=== PATIENT | female | born 1950 | race Caucasian/White ===

== ENCOUNTER 2016-12-05 03:50 | Inpatient (IN) | payer MEDICARE, OTHER ==
[~2016-12-05] VITALS: Ht 167.6 cm; Wt 77.1 kg
[2016-12-05] VITALS (13 sets, daily range): BP systolic 99–149; BP diastolic 52–67; PULSE 82–116; RESP 12–24; TEMP 97.9–98.2; O2SAT 93–100
[~2016-12-05 03:50] MED LIST: ALBU.5I NEB; ASPI1TAB69 PO; ATOR10TA15 PO; CART240C PO; D-20TAB3 PO; LEVO25TA4 PO; SYMB80AE INH; VENL75CA44 PO; VENTAER INH
[2016-12-05] MEDS ORDERED: DILT1TAB4 PO (04:03)
[2016-12-05] MEDS ORDERED: ASPI81CH CHEW (04:03)
--- NOTE | 2016-12-05 04:14 | PD ---
HPI Chief Complaint: Respiratory Symptoms Time Seen by Provider: 04:00 Travel History International Travel<30 days: No Contact w/Intl Traveler<30days: No Traveled to known affect area: No History of Present Illness HPI Is a 66 year-old woman who presents to the emergency room claiming shortness of breath. She is a history of COPD. She is a home oxygen. She states she's had some chronic cough that is unchanged. She was feeling well until today when she began to develop worsening shortness of breath, and some chest tightness. She states it feels like her COPD. Patient received 125 mg of SoluMedrol, and 3 DuoNeb's with EMS. Blood sugar was also elevated for EMS . History Past Medical History Narrative Medical COPD, home O2 Hypothyroidism Hypertension Anxiety Tetanus Vaccination: < 5 Years Influenza Vaccination: Yes Menopausal: Yes : 6 Para: 4 Social History Alcohol Use: No Tobacco Use: No (HX 2 PPD) Allergies-Medications (Allergen,Severity, Reaction): Coded Allergies: Amlodipine (Verified Allergy, Severe, Anaphylaxis, 12/05/16) severe throat swelling Ipratropium (Verified Allergy, Intermediate, Swelling, 12/05/16) throat swelling Reported Meds & Prescriptions Reported Meds & Active Scripts Active Atorvastatin (Atorvastatin Calcium) 10 Mg Tab 10 Mg PO HS Venlafaxine ER 24 HR (Venlafaxine HCl) 75 Mg Cap 75 Mg PO DAILY Ventolin Hfa 18 GM Inh (Albuterol Sulfate) 90 Mcg/Act Aer 2 Puff INH Q4H PRN Albuterol Neb (Albuterol Sulfate) 2.5 Mg/0.5 Ml Neb 2.5 Mg NEB Q4HR NEB PRN Albuterol Sulfate Inhalation Solution is concentrated & must be diluted. Read complete instructions before using. Symbicort Inh (Budesonide/Formoterol Fumarate) 80-4.5 Mcg/Act Aero 2 Puff INH Q12HR Reported Diltiazem ER 24 HR 240 Mg Ad 240 Mg PO DAILY Aspirin 81 Mg Chew 81 Mg CHEW DAILY D-2000 Maximum Strength (Cholecalciferol) 2,000 Unit Tab 2,000 Units PO DAILY Levothyroxine (Levothyroxine Sodium) 25 Mcg Tab 25 Mcg PO DAILY Review of Systems Except as stated in HPI: all other systems reviewed are Neg Physical Exam Narrative GENERAL: Well-appearing 66 year-old woman, moderate respiratory distress, tripoding, poor air movement. SKIN: Focused skin assessment warm/dry. HEAD: Atraumatic. Normocephalic. NECK: Trachea midline. No JVD. CARDIOVASCULAR: Regular rate and rhythm. No murmur appreciated. RESPIRATORY: Moderate restaurant distress, tripoding. Poor air movement. Faint end expiratory wheezing. GASTROINTESTINAL: Abdomen soft, non-tender, nondistended. Hepatic and splenic margins not palpable. MUSCULOSKELETAL: No obvious deformities. No clubbing. No cyanosis. No edema. NEUROLOGICAL: Awake and alert. No obvious cranial nerve deficits. Motor grossly within normal limits. Normal speech. PSYCHIATRIC: Appropriate mood and affect; insight and judgment normal. Data Data Last Documented VS Vital Signs Date Time Temp Pulse Resp B/P Pulse Ox O2 Delivery O2 Flow Rate FiO2 12/05/16 05:27 105 12 99/52 97 BiPAP 12/05/16 05:20 2.00 12/05/16 04:07 40 12/05/16 03:52 97.9 Orders Complete Blood Count With Diff (12/05/16 04:01) Comprehensive Metabolic Panel (12/05/16 04:01) Magnesium (Mg) (12/05/16 04:01) Troponin I (12/05/16 04:01) Iv Access Insert/Monitor (12/05/16 04:01) Electrocardiogram (12/05/16 04:01) Ecg Monitoring (12/05/16 04:01) Oximetry (12/05/16 04:01) Oxygen Administration (12/05/16 04:01) Chest, Single Ap (12/05/16 04:01) Sodium Chloride 0.9% Flush (Ns Flush) (12/05/16 04:15) Resp Bipap / Cpap Non Invas Vt (12/05/16 04:01) Albuterol Concentrated Neb (Albuterol Co (12/05/16 04:15) Albuterol Neb (Albuterol Neb) (12/05/16 05:30) Labs Laboratory Tests Test 12/05/16 12/05/16 04:01 04:05 Sodium Level 142 MEQ/L Potassium Level 4.1 MEQ/L Chloride Level 104 MEQ/L Carbon Dioxide Level 28.5 MEQ/L Anion Gap 10 MEQ/L Blood Urea Nitrogen 17 MG/DL Creatinine 0.79 MG/DL Estimat Glomerular Filtration 73 ML/MIN Rate Random Glucose 255 MG/DL Calcium Level 8.6 MG/DL Magnesium Level 2.2 MG/DL Total Bilirubin 0.3 MG/DL Aspartate Amino Transf 19 U/L (AST/SGOT) Alanine Aminotransferase 35 U/L (ALT/SGPT) Alkaline Phosphatase 120 U/L Troponin I 0.05 NG/ML Total Protein 7.2 GM/DL Albumin 3.8 GM/DL White Blood Count 14.5 TH/MM3 Red Blood Count 5.02 MIL/MM3 Hemoglobin 14.2 GM/DL Hematocrit 44.1 % Mean Corpuscular Volume 87.9 FL Mean Corpuscular Hemoglobin 28.3 PG Mean Corpuscular Hemoglobin 32.2 % Concent Red Cell Distribution Width 14.7 % Platelet Count 362 TH/MM3 Mean Platelet Volume 7.6 FL Neutrophils (%) (Auto) 58.5 % Lymphocytes (%) (Auto) 30.0 % Monocytes (%) (Auto) 6.9 % Eosinophils (%) (Auto) 3.7 % Basophils (%) (Auto) 0.9 % Neutrophils # (Auto) 8.5 TH/MM3 Lymphocytes # (Auto) 4.4 TH/MM3 Monocytes # (Auto) 1.0 TH/MM3 Eosinophils # (Auto) 0.5 TH/MM3 Basophils # (Auto) 0.1 TH/MM3 CBC Comment DIFF FINAL Differential Comment MDM Medical Decision Making Medical Screen Exam Complete: Yes Emergency Medical Condition: Yes Interpretation(s) My review of EKG: Sinus tachycardia rate of 113, normal axis, normal intervals, no definite evidence of acute ischemia. Differential Diagnosis COPD exacerbation, pneumonia, ACS, weakness, other Narrative Course Medical decision making INITIAL calls: This is a 66 year-old woman presents emergent department with acute onset shortness of breath, appears to be COPD exacerbation. She received 3 DuoNeb's and 125 Solu-Medrol in route. Despite that she still pretty uncomfortable tripoding area tight with poor air movement. The patient is on BiPAP, will monitor here in the ED. FINAL: Patient doing well, removed from BiPAP after about an hour or so. Looks much improved. We'll plan on admission for observation for serial bronchodilators and steroids. Diagnosis Primary Impression: COPD (chronic obstructive pulmonary disease) Qualified Code: J44.1 - Chronic obstructive pulmonary disease with acute exacerbation Dario Mills MD Dec 05, 2016 04:14
[2016-12-05] MEDS ORDERED: SODIUM CHLORIDE 0.9% FLUSH 10 ML FLUSH IVF PRN (04:15)
[2016-12-05] MEDS ORDERED: RESP: ALBUTEROL CONC 2.5 MG/0.5 ML NEB NEB ONE (04:15)
[2016-12-05 04:37] LABS: AUTOMATED NEUTROPHIL # 8.5 TH/MM3 (1.8-7.7); BASOPHIL # 0.1 TH/MM3 (0-0.2); BASOPHIL % 0.9 % (0.0-2.0); EOSINOPHIL # 0.5 TH/MM3 (0-0.4); EOSINOPHIL % 3.7 % (0.0-4.0); HEMATOCRIT 44.1 % (35.0-46.0); HEMO FLAGS DIFF FINAL; LYMPHOCYTE # 4.4 TH/MM3 (1.0-4.8); MEAN CELL VOLUME 87.9 FL (80.0-100.0); MEAN CORPUSCULAR HEMOGLOBIN 28.3 PG (27.0-34.0); MEAN CORPUSCULAR HGB CONC 32.2 % (32.0-36.0); MONO % 6.9 % (0.0-8.0); NEUT % 58.5 % (16.0-70.0); PLATELET COUNT 362 TH/MM3 (150-450); RED BLOOD COUNT 5.02 MIL/MM3 (4.00-5.30); RED CELL DISTRIBUTION WIDTH 14.7 % (11.6-17.2); WHITE BLOOD COUNT 14.5 TH/MM3 (4.0-11.0)
[2016-12-05 04:57] LABS: ANION GAP 10 MEQ/L (5-15); AST (GOT) 19 U/L (15-37); BICARBONATE 28.5 MEQ/L (21.0-32.0); BLOOD UREA NITROGEN 17 MG/DL (7-18); CHLORIDE 104 MEQ/L (98-107); GLOMERULAR FILTRATION RATE 73 ML/MIN (>89); MAGNESIUM 2.2 MG/DL (1.5-2.5); POTASSIUM 4.1 MEQ/L (3.5-5.1); SODIUM (NA) 142 MEQ/L (136-145)
[2016-12-05 05:02] LABS: ALKALINE PHOSPHATASE 120 U/L (45-117); ALT (GPT) 35 U/L (10-53); TOTAL BILIRUBIN ADULT 0.3 MG/DL (0.2-1.0)
--- NOTE | 2016-12-05 05:20 | RADRPT ---
EXAM DATE/TIME: 12/05/2016 04:18 [facility] COMPARISON: CHEST SINGLE AP, March 07, 2015, 9:15. INDICATIONS : Shortness of breath. MEDICAL HISTORY : Chronic obstructive pulmonary disease. SURGICAL HISTORY : None. ENCOUNTER: Initial ACUITY: 1 day PAIN SCORE: 0/10 LOCATION: Bilateral chest FINDINGS: Hyperinflation and attenuated lung markings again seen. Heart size normal. Aortic calcification. No c onsolidation or effusion. Osseous structures are intact. CONCLUSION: No significant change has occurred. William Beckford MD on December 05, 2016 at 5:18 Board Certified Radiologist. This report was verified electronically.
[2016-12-05] MEDS ORDERED: RESP: ALBUTEROL 2.5 MG/3 ML NEB (SCH) NEB ONE (05:30)
[2016-12-05] MEDS ORDERED: SODIUM CHLORIDE 0.9% FLUSH 10 ML FLUSH IV FLUSH PRN (07:15)
[2016-12-05] MEDS ORDERED: RESP: ALBUTEROL 2.5 MG/3 ML NEB (PRN) INH (07:15)
--- NOTE | 2016-12-05 07:23 | HHI.HP ---
HPI Service CP Hospitalists Primary Care Physician Unknown Admission Diagnosis COPD Exacerbation Chief Complaint: sob, wheezing, cough Travel History International Travel<30 Days: No Contact w/Intl Traveler <30 Da: No Traveled to Known Affected Are: No History of Present Illness Is a 66 year-old woman with COPD, HTN who presents to the emergency room claiming shortness of breath. She is a home oxygen at 1.5 L/min. She states she's had some chronic cough that is unchanged except for slight phlegm production last few days. She was feeling well until earlier today when she began to develop worsening shortness of breath, and some chest tightness. She states it feels like her COPD exac that she has had in the past. denies chest pain. Was watching TV around 2:30 when she began to note sob. Performed NEB tx and felt better. Went to restroom and started wheezing and having SOB again. She notified EMS. Patient received 125 mg of SoluMedrol, and 3 DuoNeb's with EMS. Blood sugar was also elevated for EMS . She feels much better currently after nebs, steroid, oxygen. She was initially on BiPAP per ER MD. Her last exacerbation was appx 1.5 yrs ago. Review of Systems Constitutional: DENIES: Diaphoretic episodes, Fatigue, Fever, Weight gain, Weight loss, Chills, Dizziness, Change in appetite, Night Sweats Eyes: DENIES: Blurred vision, Diplopia, Eye inflammation, Eye pain, Vision loss , Photosensitivity, Double Vision Ears, nose, mouth, throat: DENIES: Tinnitus, Hearing loss, Vertigo, Nasal discharge, Oral lesions, Throat pain, Hoarseness, Ear Pain, Running Nose, Epistaxis, Sinus Pain, Toothache, Odynophagia Respiratory: COMPLAINS OF: Cough, Wheezing, Sputum production, Shortness of breath Cardiovascular: DENIES: Chest pain, Palpitations, Syncope, Dyspnea on Exertion , PND, Lower Extremity Edema, Orthopnea, Claudication Gastrointestinal: DENIES: Abdominal pain, Black stools, Bloody stools, BRB per rectum, Constipation, Diarrhea, GERD, Nausea, Reflux, Vomiting, Difficulty Swallowing, Anorexia, See HPI Musculoskeletal: COMPLAINS OF: Back pain Hematologic/lymphatic: DENIES: Bruising, Lymphadenopathy Immunologic/allergic: DENIES: Eczema, Urticaria Neurologic: DENIES: Abnormal gait, Headache, Localized weakness, Paresthesias, Seizures, Speech Problems, Tremor, Poor Balance Psychiatric: COMPLAINS OF: Anxiety Past Family Social History Past Medical History COPD Depression/anxiety HTN Hyperlipidemia hx Skin CA Past Surgical History Skin CA removed from scalp (she thinks SCC) T&A Left ulnar nerve surgery Reported Medications Atorvastatin (Atorvastatin Calcium) 10 Mg Tab 10 Mg PO HS Venlafaxine ER 24 HR (Venlafaxine HCl) 75 Mg Cap 75 Mg PO DAILY Ventolin Hfa 18 GM Inh (Albuterol Sulfate) 90 Mcg/Act Aer 2 Puff INH Q4H PRN Albuterol Neb (Albuterol Sulfate) 2.5 Mg/0.5 Ml Neb 2.5 Mg NEB Q4HR NEB PRN Albuterol Sulfate Inhalation Solution is concentrated & must be diluted. Read complete instructions before using. Symbicort Inh (Budesonide/Formoterol Fumarate) 80-4.5 Mcg/Act Aero 2 Puff INH Q12HR Diltiazem ER 24 HR 240 Mg Ad 240 Mg PO DAILY Aspirin 81 Mg Chew 81 Mg CHEW DAILY D-1999 Maximum Strength (Cholecalciferol) 2,000 Unit Tab 2,000 Units PO DAILY Levothyroxine (Levothyroxine Sodium) 25 Mcg Tab 25 Mcg PO DAILY Allergies: Coded Allergies: Amlodipine (Verified Allergy, Severe, Anaphylaxis, 12/05/16) severe throat swelling Ipratropium (Verified Allergy, Intermediate, Swelling, 12/05/16) throat swelling Family History both parents living Mother has HTN Father has hx Skin CA Social History No tobacco in 4 yrs, smoked 2ppd for 45 yrs prior Rare EtOH Lives alone, , from [facility], moved her in 2007 Previously worked as nurse aide Physical Exam Vital Signs Vital Signs Date Time Temp Pulse Resp B/P Pulse Ox O2 Delivery O2 Flow Rate FiO2 12/05/16 05:27 105 12 99/52 97 BiPAP 12/05/16 05:20 98 Nasal Cannula 2.00 12/05/16 04:07 110 24 100 BiPAP 40 12/05/16 04:06 100 BiPAP 40 12/05/16 04:03 113 12 149/67 100 BiPAP 40 12/05/16 04:00 99 40 12/05/16 03:52 97.9 82 24 Physical Exam GENERAL: This is a well-nourished, well-developed patient, in no apparent distress. slightly obese. SKIN: No rashes, ecchymoses or lesions. Cool and dry. HEAD: Atraumatic. Normocephalic. No temporal or scalp tenderness. EYES: Pupils equal round and reactive. Extraocular motions intact. No scleral icterus. No injection or drainage. ENT: Nose without bleeding, purulent drainage or septal hematoma. Throat without erythema, tonsillar hypertrophy or exudate. Uvula midline. Airway patent. NECK: Trachea midline. No JVD or lymphadenopathy. Supple, nontender, no meningeal signs. CARDIOVASCULAR: Regular rate and rhythm with rate in low 100s without murmurs, gallops, or rubs. RESPIRATORY: decreased BS bilat with expir wheezes, fair air movement, no fine crackles or fremitus GASTROINTESTINAL: Abdomen soft, non-tender, nondistended. No hepato-splenomegaly , or palpable masses. No guarding. MUSCULOSKELETAL: Extremities without clubbing, cyanosis, or edema. No joint tenderness, effusion, or edema noted. No calf tenderness. NEUROLOGICAL: Awake and alert. Cranial nerves II through XII intact. Motor and sensory grossly within normal limits. Five out of 5 muscle strength in all muscle groups. Normal speech. Laboratory Laboratory Tests Test 12/05/16 12/05/16 04:01 04:05 Sodium Level 142 Potassium Level 4.1 Chloride Level 104 Carbon Dioxide Level 28.5 Anion Gap 10 Blood Urea Nitrogen 17 Creatinine 0.79 Estimat Glomerular Filtration 73 Rate Random Glucose 255 Calcium Level 8.6 Magnesium Level 2.2 Total Bilirubin 0.3 Aspartate Amino Transf 19 (AST/SGOT) Alanine Aminotransferase 35 (ALT/SGPT) Alkaline Phosphatase 120 Troponin I 0.05 Total Protein 7.2 Albumin 3.8 White Blood Count 14.5 Red Blood Count 5.02 Hemoglobin 14.2 Hematocrit 44.1 Mean Corpuscular Volume 87.9 Mean Corpuscular Hemoglobin 28.3 Mean Corpuscular Hemoglobin 32.2 Concent Red Cell Distribution Width 14.7 Platelet Count 362 Mean Platelet Volume 7.6 Neutrophils (%) (Auto) 58.5 Lymphocytes (%) (Auto) 30.0 Monocytes (%) (Auto) 6.9 Eosinophils (%) (Auto) 3.7 Basophils (%) (Auto) 0.9 Neutrophils # (Auto) 8.5 Lymphocytes # (Auto) 4.4 Monocytes # (Auto) 1.0 Eosinophils # (Auto) 0.5 Basophils # (Auto) 0.1 CBC Comment DIFF FINAL Differential Comment Result Diagram: 12/05/1640412/05/16400 Imaging Last 72 hours Impressions Chest X-Ray 12/05/16400 Signed Impressions: Service Date/Time: Monday, December 05, 2016 04:18 - CONCLUSION: No significant change has occurred. William Beckford MD Assessment and Plan Problem List: (1) COPD (chronic obstructive pulmonary disease) with acute bronchitis Status: Acute Plan: provide abx, steroid, nebs, oxygen (2) Dyslipidemia Status: Chronic Plan: cont rx (3) Hypertension Status: Chronic Plan: cont rx (4) Hypothyroidism Status: Chronic Plan: check TSH, cont rx (5) Anxiety Status: Chronic Plan: cont rx Code Status full Discussed Condition With pt and ER provider Physician Certification 2 Midnight Certification Type: Admission for Inpatient Services Order for Inpatient Services The services are ordered in accordance with Medicare regulations or non- Medicare payer requirements, as applicable. In the case of services not specified as inpatient-only, they are appropriately provided as inpatient services in accordance with the 2-midnight benchmark. Estimated LOS (days): 2 days is the estimated time the patient will need to remain in the hospital, assuming treatment plan goals are met and no additional complications. Post-Hospital Plan: Home Problem Qualifiers (1) Hypertension: Qualified Code: I10 - Essential hypertension Rob Thompson MD PhD Dec 05, 2016 07:23
[2016-12-05] MEDS: cefTRIAXone INJ 1,000 MG in SODIUM CHLORIDE 0.9% INJ 100 ML IV SCH (08:16)
[2016-12-05] MEDS: ASPIRIN 81 MG CHEW TAB CHEW SCH (08:17)
[2016-12-05] MEDS: DILTIAZEM-CD 240 MG CAP ER PO SCH (08:17)
[2016-12-05] MEDS: LEVOTHYROXINE SODIUM 25 MCG TAB PO SCH (08:17)
[2016-12-05] MEDS: SODIUM CHLORIDE 0.9% FLUSH 10 ML FLUSH IV FLUSH SCH ×2 (08:17→21:50)
[2016-12-05] MEDS: AZITHROMYCIN 250 MG TAB PO SCH (08:18)
[2016-12-05] MEDS: CHOLECALCIFEROL (VIT D3) 1000 UNIT TAB PO SCH (08:18)
[2016-12-05] MEDS: VENLAFAXINE HCL XR 75 MG CAP PO SCH (08:18)
[2016-12-05] MEDS ORDERED: RESP: ALBUTEROL 2.5 MG/IPRATROPIUM 0.5 MG NEB (SCH) INH (10:00)
[2016-12-05] MEDS ORDERED: PNEUMOCOCCAL POLYVALENT INJ 25 MCG/0.5 ML SYR IM ONE (16:15)
--- NOTE | 2016-12-05 16:25 | HHI.PR ---
Subjective Remarks feels better not back to baseline Objective Vitals heart reg/tachy lung diminished air mvmt abd s/nt ext no edema Vital Signs Date Time Temp Pulse Resp B/P Pulse Ox O2 Delivery O2 Flow Rate FiO2 12/05/16 14:36 98.2 116 18 139/63 95 12/05/16 10:47 116 24 132/56 96 Nasal Cannula 2 12/05/16 08:49 96 Nasal Cannula 2.00 12/05/16 07:25 102 24 118/56 96 Nasal Cannula 2 12/05/16 05:27 105 12 99/52 97 BiPAP 12/05/16 05:20 98 Nasal Cannula 2.00 12/05/16 04:07 110 24 100 BiPAP 40 12/05/16 04:06 100 BiPAP 40 12/05/16 04:03 113 12 149/67 100 BiPAP 40 12/05/16 04:00 99 40 12/05/16 03:52 97.9 82 24 Result Diagram: 12/05/1640412/05/16400 Imaging Last 72 hours Impressions Chest X-Ray 12/05/16400 Signed Impressions: Service Date/Time: Monday, December 05, 2016 04:18 - CONCLUSION: No significant change has occurred. William Beckford MD A/P Problem List: (1) COPD (chronic obstructive pulmonary disease) with acute bronchitis Status: Acute Plan: copd exac chronic sinus tach. cont steroid/nebs. oxygen reevaluate for d/c in AM (2) Dyslipidemia Status: Chronic Plan: cont rx (3) Hypertension Status: Chronic Plan: cont rx (4) Hypothyroidism Status: Chronic Plan: cont rx (5) Anxiety Status: Chronic Plan: cont rx Problem Qualifiers (1) Hypertension: Qualified Code: I10 - Essential hypertension José Manuel Ellis MD Dec 05, 2016 16:25
[2016-12-05] MEDS ORDERED: RESP: ALBUTEROL 2.5 MG/IPRATROPIUM 0.5 MG NEB (SCH) NEB ONE (16:30)
[2016-12-05 16:48] LABS: HEMOGLOBIN A1a 1.1 %; HEMOGLOBIN A1b 2.4 %; HEMOGLOBIN Ao 81.9 %; HEMOGLOBIN LA1C 2.7 %; HEMOGLOBIN P3 4.1 %
[2016-12-05] MEDS: methylPREDNISolone SOD SUCC 125 MG/2 ML VIAL IV PUSH SCH (17:39)
[2016-12-05] MEDS: RESP: ALBUTEROL 2.5 MG/3 ML NEB (SCH) NEB (19:00)
[2016-12-05] MEDS ORDERED: RESP: ALBUTEROL 2.5 MG/IPRATROPIUM 0.5 MG NEB (SCH) NEB (20:00)
[2016-12-05] MEDS ORDERED: ATORVASTATIN 10 MG TAB PO SCH (21:00)
[2016-12-05] MEDS: BUDESONIDE-FORMOTEROL 80/4.5 MCG INHALER INH SCH (21:49)
[2016-12-06] VITALS: BP 116/55; PULSE 105; RESP 20; TEMP 98.1; O2SAT 94
[2016-12-06] MEDS ORDERED: TEMAZEPAM 15 MG CAP PO PRN (00:45)
[2016-12-06] MEDS: methylPREDNISolone SOD SUCC 125 MG/2 ML VIAL IV PUSH SCH ×2 (00:54→06:14)
[2016-12-06] MEDS ORDERED: GLUCAGON 1 MG/ML VIAL OTHER PRN (01:00)
[2016-12-06] MEDS ORDERED: DEXTROSE 50% IN WATER 50 ML VIAL(D50) IV PUSH PRN (01:00)
[2016-12-06 04:00] VITALS: BP 106/63; PULSE 112; RESP 20; TEMP 98.1; O2SAT 95
[2016-12-06 06:10] LABS: BASOPHIL # 0.1 TH/MM3 (0-0.2); BASOPHIL % 0.3 % (0.0-2.0); HEMATOCRIT 41.7 % (35.0-46.0); LYMPH % 4.5 % (9.0-44.0); LYMPHOCYTE # 1.4 TH/MM3 (1.0-4.8); MEAN CELL VOLUME 87.5 FL (80.0-100.0); MEAN CORPUSCULAR HEMOGLOBIN 28.5 PG (27.0-34.0); MEAN CORPUSCULAR HGB CONC 32.5 % (32.0-36.0); MONO % 1.9 % (0.0-8.0); NEUT % 93.3 % (16.0-70.0); PLATELET COUNT 347 TH/MM3 (150-450); RED BLOOD COUNT 4.77 MIL/MM3 (4.00-5.30); RED CELL DISTRIBUTION WIDTH 14.1 % (11.6-17.2); WHITE BLOOD COUNT 31.1 TH/MM3 (4.0-11.0)
[2016-12-06] MEDS: LEVOTHYROXINE SODIUM 25 MCG TAB PO SCH (06:15)
[2016-12-06 06:34] LABS: BICARBONATE 30.6 MEQ/L (21.0-32.0); POTASSIUM 4.2 MEQ/L (3.5-5.1)
[2016-12-06 06:51] LABS: HEMO FLAGS AUTO DIFF
[2016-12-06] MEDS ORDERED: INSULIN ASPART SUPPLEMENTAL SCALE SQ SCH (07:00)
[2016-12-06 08:00] VITALS: BP 132/62; PULSE 112; RESP 20; TEMP 97.7; O2SAT 92
[2016-12-06] MEDS: RESP: ALBUTEROL 2.5 MG/3 ML NEB (SCH) NEB ×2 (08:29→11:46)
[2016-12-06 08:31] VITALS: O2SAT 95
[2016-12-06 08:35] LABS: BANDS 7 % (0-6); NEUTROPHIL # MANUAL DIFF 29.5 TH/MM3 (1.8-7.7); PLATELET ESTIMATE SMEAR NORMAL (NORMAL); PLATELET MORPHOLOGY NORMAL (NORMAL); POLYS (SEG NEUTROPHILS) 88 % (16-70); SCAN/DIFF FINAL DIFF MANUAL; WBC DIFF SAMPLE 100
[2016-12-06] MEDS: DILTIAZEM-CD 240 MG CAP ER PO SCH (08:50)
[2016-12-06] MEDS: AZITHROMYCIN 250 MG TAB PO SCH (08:50)
[2016-12-06] MEDS: ASPIRIN 81 MG CHEW TAB CHEW SCH (08:50)
[2016-12-06] MEDS: CHOLECALCIFEROL (VIT D3) 1000 UNIT TAB PO SCH (08:50)
[2016-12-06] MEDS: BUDESONIDE-FORMOTEROL 80/4.5 MCG INHALER INH SCH (08:50)
[2016-12-06] MEDS: VENLAFAXINE HCL XR 75 MG CAP PO SCH (08:50)
[2016-12-06] MEDS: SODIUM CHLORIDE 0.9% FLUSH 10 ML FLUSH IV FLUSH SCH (08:51)
[2016-12-06] MEDS: cefTRIAXone INJ 1,000 MG in SODIUM CHLORIDE 0.9% INJ 100 ML IV SCH (08:51)
--- NOTE | 2016-12-06 10:09 | HHI.PR ---
Subjective Remarks wants to go home. Objective Vitals heart reg lung improved air mvmt ext no edema Vital Signs Date Time Temp Pulse Resp B/P Pulse Ox O2 Delivery O2 Flow Rate FiO2 12/06/16 08:31 95 Nasal Cannula 2.00 12/06/16 08:00 97.7 112 20 132/62 92 12/06/16 04:00 98.1 112 20 106/63 95 12/06/16 00:00 98.1 105 20 116/55 94 12/05/16 20:00 Nasal Cannula 2.00 12/05/16 20:00 98.2 106 20 122/58 95 12/05/16 19:00 93 Nasal Cannula 2.00 12/05/16 16:00 98.1 104 20 119/57 96 12/05/16 14:36 98.2 116 18 139/63 95 12/05/16 10:47 116 24 132/56 96 Nasal Cannula 2 12/05/16 12/05/16 12/06/16 14:59 22:59 06:59 Intake Total 340 ml 480 ml Balance 340 ml 480 ml Intake Oral 340 ml 480 ml # Voids 2 2 Result Diagram: 12/06/16 0522 12/06/16 0522 Imaging Last 72 hours Impressions Chest X-Ray 12/05/16 0401 Signed Impressions: Service Date/Time: Monday, December 05, 2016 04:18 - CONCLUSION: No significant change has occurred. William Beckford MD A/P Problem List: (1) COPD (chronic obstructive pulmonary disease) with acute bronchitis Status: Acute Plan: copd exac chronic sinus tach. steroid hyperglycemia. no fever. ...pt feels better and insisting on d/c cont steroid/nebs. oxygen pt wants to go home. I offered another day. (2) Dyslipidemia Status: Chronic Plan: cont rx (3) Hypertension Status: Chronic Plan: cont rx (4) Hypothyroidism Status: Chronic Plan: cont rx (5) Anxiety Status: Chronic Plan: cont rx Problem Qualifiers (1) Hypertension: Qualified Code: I10 - Essential hypertension José Manuel Ellis MD Dec 06, 2016 10:09
[2016-12-06] MEDS ORDERED: PRED10 PO (10:12)
[2016-12-06] MEDS ORDERED: REST15CA PO (10:12)
--- NOTE | 2016-12-06 10:12 | HHI.DCPOC ---
Discharge Care Plan Diagnosis: (1) COPD (chronic obstructive pulmonary disease) Goals to Promote Your Health * To prevent worsening of your condition and complications * To maintain your health at the optimal level Directions to Meet Your Goals Take your medications as prescribed Follow your dietary instruction Follow activity as directed Keep your appointments as scheduled Take your immunizations and boosters as scheduled If your symptoms worsen call your PCP, if no PCP go to Urgent Care Center or Emergency Room Smoking is Dangerous to Your Health. Avoid second hand smoke Call the 24-hour hour crisis hotline for domestic abuse at José Manuel Ellis MD Dec 06, 2016 10:12
[2016-12-06] MEDS ORDERED: LEVA500T20 PO (10:14)
--- NOTE | 2016-12-06 10:53 | EKG ---
Date Performed: 12/05/2016 Time Performed: 04:03:45 PTAGE: 66 years EKG: SINUS TACHYCARDIA WITH OCCASIONAL VENTRICULAR PREMATURE COMPLEXES NONSPECIFIC T-WAVE ABNORM ALITY ABNORMAL RHYTHM ECG PREVIOUS TRACING : 03/07/2015 20.31 DOCTOR: Dario Chen Interpretating Date/Time 12/06/2016 10:51:30
[2016-12-06 12:00] VITALS: BP 136/63; PULSE 116; RESP 20; TEMP 97.9; O2SAT 93
== END 2016-12-06 13:46 | disposition home or self-care (01) | DRG 192 ==
LOC: NEPE 03:50 → NEDA 06:10 → OBSVTOIN 07:06 → NEDH 12:22 → N04A 14:32
PROVIDERS: ADMIT Hospitalist; ATTEND Hospitalist
PROC: 5A09357 Assistance with Respiratory Ventilation, Less than 24 Consecutive Hours, Continuous Positive Airway Pressure (ICD-10-PCS; principal; 2016-12-05)
DX: J44.1 Chronic obstructive pulmonary disease with (acute) exacerbation (principal); Z99.81 Dependence on supplemental oxygen; I10 Essential (primary) hypertension; E03.9 Hypothyroidism, unspecified; F41.9 Anxiety disorder, unspecified; F32.9 Major depressive disorder, single episode, unspecified; E78.5 Hyperlipidemia, unspecified; J44.0 Chronic obstructive pulmonary disease with (acute) lower respiratory infection; J20.9 Acute bronchitis, unspecified; Z87.891 Personal history of nicotine dependence; Z85.828 Personal history of other malignant neoplasm of skin; T38.0X5A Adverse effect of glucocorticoids and synthetic analogues, initial encounter; R73.9 Hyperglycemia, unspecified
CPT/HCPCS: 71010; 80048; 80053; 82948; 83036; 83735; 84443; 84484; 85007; 85025; 85027; 93005; 94002; 94640; 94664; J0696; J1815; J2930; J7611; J7613

== ENCOUNTER 2017-03-13 12:31 | Inpatient (IN) | payer MEDICARE ==
[2017-03-13] VITALS (7 sets, daily range): BP systolic 118–167; BP diastolic 53–76; PULSE 104–130; RESP 20–52; TEMP 97.5–98.8; O2SAT 94–99
[~2017-03-13] VITALS: Ht 162.6 cm; Wt 78.3 kg
[~2017-03-13 12:31] MED LIST changes: -ASPI1TAB69 PO; +ASPI81CH CHEW; -CART240C PO; +DILT1TAB4 PO; +PRED10 PO; +REST15CA PO
[2017-03-13] MEDS ORDERED: LEVA500T20 PO (12:43)
[2017-03-13] MEDS ORDERED: methylPREDNISolone SOD SUCC 125 MG/2 ML VIAL IV PUSH ONE (12:45)
[2017-03-13 13:03] LABS: AUTOMATED NEUTROPHIL # 11.1 TH/MM3 (1.8-7.7); BASOPHIL # 0.1 TH/MM3 (0-0.2); BASOPHIL % 0.7 % (0.0-2.0); EOSINOPHIL # 0.4 TH/MM3 (0-0.4); EOSINOPHIL % 2.8 % (0.0-4.0); HEMATOCRIT 46.8 % (35.0-46.0); HEMO FLAGS DIFF FINAL; LYMPH % 19.6 % (9.0-44.0); LYMPHOCYTE # 3.2 TH/MM3 (1.0-4.8); MEAN CELL VOLUME 88.9 FL (80.0-100.0); MEAN CORPUSCULAR HEMOGLOBIN 28.7 PG (27.0-34.0); MEAN CORPUSCULAR HGB CONC 32.3 % (32.0-36.0); MONO % 7.5 % (0.0-8.0); NEUT % 69.4 % (16.0-70.0); PLATELET COUNT 369 TH/MM3 (150-450); RED BLOOD COUNT 5.27 MIL/MM3 (4.00-5.30); RED CELL DISTRIBUTION WIDTH 14.3 % (11.6-17.2)
[2017-03-13] MEDS: RESP: ALBUTEROL 2.5 MG/IPRATROPIUM 0.5 MG NEB (SCH) INH ×3 (13:04→14:22)
[2017-03-13 13:20] LABS: BICARBONATE 31.4 MEQ/L (21.0-32.0); POTASSIUM 4.2 MEQ/L (3.5-5.1)
--- NOTE | 2017-03-13 13:31 | RADRPT ---
EXAM DATE/TIME: 03/13/2017 13:25 [facility] COMPARISON: CHEST SINGLE AP, December 05, 2016, 4:18. INDICATIONS : Wheezing, short of breath. MEDICAL HISTORY : Chronic obstructive pulmonary disease. SURGICAL HISTORY : None. ENCOUNTER: Initial ACUITY: 1 day PAIN SCORE: 0/10 LOCATION: Bilateral chest FINDINGS: A single view of the chest demonstrates the lungs to be symmetrically aerated without evidence of mas s, infiltrate or effusion. There is hyperaeration of both lung gerber. The cardiomediastinal contour s are unremarkable. Osseous structures are intact. No significant changes. CONCLUSION: No acute disease. No significant change has occurred. Ricardo Dominique MD on March 13, 2017 at 13:29 Board Certified Radiologist. This report was verified electronically.
--- NOTE | 2017-03-13 14:23 | PD ---
HPI Chief Complaint: Respiratory Distress Time Seen by Provider: 12:43 Travel History International Travel<30 days: No Contact w/Intl Traveler<30days: No Traveled to known affect area: No History of Present Illness HPI 66-year-old female that presents to the ED for evaluation of shortness of breath. Patient has a chronic history of COPD. Secondary to smoking. Patient has not smoked for 4 years. Patient states that she for the past 4 days has been having worsening shortness of breath. Today got more severe. He came by ambulance for evaluation of this. Per patient she feels somewhat improved but he still feels very short of breath. She denies any fevers chills or sweats. Some congestion and some chest pressure which per patient is her usual with COPD exacerbation. She has required admission once before. She denies any recent travel. No chest pain at this time. No sick contacts. Patient has no pain. No nausea or vomiting. No bowel movement issues. No urinary issues. PFSH Past Medical History Hx Anticoagulant Therapy: No Blood Disorders: No Depression: Yes Heart Rhythm Problems: Yes Cancer: Yes (skin) Cardiovascular Problems: Yes Chemotherapy: No COPD: Yes Cerebrovascular Accident: No Diabetes: No Diminished Hearing: No Genitourinary: No Musculoskeletal: No Neurologic: No Psychiatric: No Reproductive: No Respiratory: Yes Integumentary: Yes (SKIN CA) Immunizations Current: Yes Radiation Therapy: No Thyroid Disease: Yes (HYPO) Menopausal: Yes : 6 Para: 4 Miscarriage: 0 : 2 Tubal Ligation: Yes Past Surgical History Neurologic Surgery: Yes ("LEFT ULNAR NERVE" LEFT ELBOW) Tonsillectomy: Yes Other Surgery: Yes (SKIN CA ON RIGHT SIDE OF HEAD REMOVED) Social History Alcohol Use: No Tobacco Use: No (HX 2 PPD) Substance Use: No Allergies-Medications (Allergen,Severity, Reaction): Coded Allergies: amlodipine (Unverified Allergy, Severe, Anaphylaxis, 01/07/17) severe throat swelling ipratropium (Unverified Allergy, Intermediate, Swelling, 01/07/17) throat swelling Reported Meds & Prescriptions Reported Meds & Active Scripts Active Diltiazem ER 24 HR 240 Mg Ad 240 Mg PO DAILY Levothyroxine (Levothyroxine Sodium) 25 Mcg Tab 25 Mcg PO DAILY Venlafaxine ER 24 HR (Venlafaxine HCl) 75 Mg Cap 75 Mg PO DAILY Atorvastatin (Atorvastatin Calcium) 10 Mg Tab 10 Mg PO HS Ventolin Hfa 18 GM Inh (Albuterol Sulfate) 90 Mcg/Act Aer 2 Puff INH Q4H PRN Albuterol Neb (Albuterol Sulfate) 2.5 Mg/0.5 Ml Neb 2.5 Mg NEB Q4HR NEB PRN Albuterol Sulfate Inhalation Solution is concentrated & must be diluted. Read complete instructions before using. Symbicort Inh (Budesonide/Formoterol Fumarate) 80-4.5 Mcg/Act Aero 2 Puff INH Q12HR Reported Levaquin (Levofloxacin) 500 Mg Tablet 500 Mg PO DAILY Aspirin 81 Mg Chew 81 Mg CHEW DAILY D-2000 Maximum Strength (Cholecalciferol) 2,000 Unit Tab 2,000 Units PO DAILY Review of Systems Except as stated in HPI: all other systems reviewed are Neg Physical Exam Narrative GENERAL: SKIN: Warm and dry. HEAD: Atraumatic. Normocephalic. EYES: Pupils equal and round. No scleral icterus. No injection or drainage. ENT: No nasal bleeding or discharge. Mucous membranes pink and moist. Tongue is midline. No uvula deviation. NECK: Trachea midline. No JVD. CARDIOVASCULAR: Regular rate and rhythm. No murmurs, S3, S4. RESPIRATORY: No accessory muscle use. Expiratory wheezing heard in all lung gerber. Feels. Breath sounds equal bilaterally. GASTROINTESTINAL: Abdomen soft, non-tender, nondistended. Hepatic and splenic margins not palpable. MUSCULOSKELETAL: Extremities without clubbing, cyanosis, or edema. No obvious deformities. Full range of motion of the upper and lower extremities bilaterally. 2+ pulses bilaterally. NEUROLOGICAL: Awake and alert. No obvious cranial nerve deficits. Motor grossly within normal limits. Five out of 5 muscle strength in the arms and legs. Normal speech. PSYCHIATRIC: Appropriate mood and affect; insight and judgment normal. Data Data Last Documented VS Vital Signs Date Time Temp Pulse Resp B/P (MAP) Pulse Ox O2 Delivery O2 Flow Rate FiO2 03/13/17 14:11 104 52 151/65 (93) 96 Nasal Cannula 3.00 03/13/17 12:35 98.8 Orders Orders Basic Metabolic Panel (Bmp) (03/13/17 12:43) Complete Blood Count With Diff (03/13/17 12:43) Chest, Single Ap (03/13/17 12:43) Ecg Monitoring (03/13/17 12:43) Iv Access Insert/Monitor (03/13/17 12:43) Oximetry (03/13/17 12:43) Oxygen Administration (03/13/17 12:43) Methylprednisolone So Succ Inj (Solumedr (03/13/17 12:45) Albuterol-Ipratropium Neb (Duoneb Neb) (03/13/17 12:45) Sodium Chloride 0.9% Flush (Ns Flush) (03/13/17 12:45) Electrocardiogram (03/13/17 12:40) Albuterol-Ipratropium Neb (Duoneb Neb) (03/13/17 14:15) Admit Order (Ed Use Only) (03/13/17 14:40) Labs Laboratory Tests Test 03/13/17 12:45 White Blood Count 16.0 TH/MM3 Red Blood Count 5.27 MIL/MM3 Hemoglobin 15.1 GM/DL Hematocrit 46.8 % Mean Corpuscular Volume 88.9 FL Mean Corpuscular Hemoglobin 28.7 PG Mean Corpuscular Hemoglobin Concent 32.3 % Red Cell Distribution Width 14.3 % Platelet Count 369 TH/MM3 Mean Platelet Volume 6.9 FL Neutrophils (%) (Auto) 69.4 % Lymphocytes (%) (Auto) 19.6 % Monocytes (%) (Auto) 7.5 % Eosinophils (%) (Auto) 2.8 % Basophils (%) (Auto) 0.7 % Neutrophils # (Auto) 11.1 TH/MM3 Lymphocytes # (Auto) 3.2 TH/MM3 Monocytes # (Auto) 1.2 TH/MM3 Eosinophils # (Auto) 0.4 TH/MM3 Basophils # (Auto) 0.1 TH/MM3 CBC Comment DIFF FINAL Differential Comment Blood Urea Nitrogen 11 MG/DL Creatinine 0.57 MG/DL Random Glucose 119 MG/DL Calcium Level 9.3 MG/DL Sodium Level 139 MEQ/L Potassium Level 4.2 MEQ/L Chloride Level 101 MEQ/L Carbon Dioxide Level 31.4 MEQ/L Anion Gap 7 MEQ/L Estimat Glomerular Filtration Rate 107 ML/MIN MDM Medical Decision Making Medical Screen Exam Complete: Yes Emergency Medical Condition: Yes Medical Record Reviewed: Yes Interpretation(s) Last Impressions Chest X-Ray 03/13/17 6223 Signed Impressions: Service Date/Time: Monday, March 13, 2017 13:25 - CONCLUSION: No acute disease. No significant change has occurred. Ricardo Dominique MD CBC & BMP Diagram 03/13/17 12:45 Calcium Level 9.3 Differential Diagnosis COPD exacerbation versus COPD versus normal exam versus tachycardia versus CHF versus normal exam Narrative Course 62 year old female that presents to the ED for evaluation of COPD exacerbation. Patient was properly examined and was found to have signs and symptoms very consistent with COPD exacerbation. Labs and imaging were ordered. Labs and imaging were essentially unremarkable. Patient was reassessed and does feel improved. We did a walking test with her but she became very tachypneic in with oxygen as well as her O2 saturation went to the 90s. At this time for further no feel she states discharge. Patient was given 3 DuoNeb treatments with improvement. This time recommendation is for admission for FOR COPD exacerbation. She agrees with this plan. [facility] doctor was contacted. Dr Casillas agrees to admission. Diagnosis Primary Impression: COPD (chronic obstructive pulmonary disease) Qualified Codes: J44.1 - Chronic obstructive pulmonary disease with (acute) exacerbation Admitting Information Admitting Physician Requests: Observation Umesh Dooley Mar 13, 2017 14:23
[2017-03-13] MEDS ORDERED: ONDANSETRON HCL 4 MG/2 ML VIAL IV PRN (15:45)
[2017-03-13] MEDS ORDERED: ACETAMINOPHEN 325 MG TAB PO PRN (15:45)
--- NOTE | 2017-03-13 15:46 | HHI.HP ---
HPI Service [facility] Hospitalists Primary Care Physician BIJAN Ayala Admission Diagnosis COPD exacerbation Chief Complaint: SOB Travel History International Travel<30 Days: No Contact w/Intl Traveler <30 Da: No Traveled to Known Affected Are: No History of Present Illness Mrs. Newberry is a pleasant 66 y/o female with COPD chronically on 1.5L of supplemental O2, HTN, hyperlipidemia and depression/anxiety who presented to the ED on 03/13 for evaluation of shortness of breath. Patient reports that for the past week or so she has been having worsening shortness of breath. She follows with Dr. Longoria as an outpt and was seen in his office last week. She was having issues with increased SOB at that time and her Symbicort was stopped and she was started on Stiolto Respimat nebulized medication but this did not help. She was also give Levaquin 500mg po daily which she completed a about a week long regimen. She has been taking Albuterol nebs Q4-5 hours and Ventolin PRN. Today her SOB became more severe and she had some chest tightness. She states it feels like her COPD exacerbation that she has had in the past. She denies any fevers chills or sweats. Pt has had some sinus congestion and some chest pressure which per patient is her usual with COPD exacerbation. In the Ed she was given a dose of Solu-Medrol 125mg once and was given Duoneb treatments x 6. Pt was ambulated in the ED on supplemental O2 but she had tachypnea and her O2 sats dropped into the low 90's. Pt is being admitted for continued treatment of her COPD exacerbation. Review of Systems Constitutional: DENIES: Fever, Chills Eyes: DENIES: Vision loss Ears, nose, mouth, throat: DENIES: Hearing loss, Nasal discharge, Running Nose , Epistaxis Respiratory: COMPLAINS OF: Cough, Shortness of breath Cardiovascular: DENIES: Chest pain, Palpitations, Lower Extremity Edema Gastrointestinal: DENIES: Abdominal pain, Nausea, Vomiting Genitourinary: DENIES: Urinary frequency, Urinary incontinence, Urgency Musculoskeletal: DENIES: Back pain, Neck pain Integumentary: DENIES: Rash Neurologic: DENIES: Headache Psychiatric: DENIES: Confusion Past Family Social History Past Medical History COPD Depression/anxiety HTN Hyperlipidemia Hx Skin CA Hx of tobacco use Past Surgical History Skin CA removed from scalp (she thinks SCC) T&A Left ulnar nerve surgery Reported Medications Diltiazem ER 24 HR 240 Mg Ad 240 Mg PO DAILY Levothyroxine (Levothyroxine Sodium) 25 Mcg Tab 25 Mcg PO DAILY Venlafaxine ER 24 HR (Venlafaxine HCl) 75 Mg Cap 75 Mg PO DAILY Atorvastatin (Atorvastatin Calcium) 10 Mg Tab 10 Mg PO HS Ventolin Hfa 18 GM Inh (Albuterol Sulfate) 90 Mcg/Act Aer 2 Puff INH Q4H PRN Albuterol Neb (Albuterol Sulfate) 2.5 Mg/0.5 Ml Neb 2.5 Mg NEB Q4HR NEB PRN Albuterol Sulfate Inhalation Solution is concentrated & must be diluted. Read complete instructions before using. Symbicort Inh (Budesonide/Formoterol Fumarate) 80-4.5 Mcg/Act Aero 2 Puff INH Q12HR Levaquin (Levofloxacin) 500 Mg Tablet 500 Mg PO DAILY Aspirin 81 Mg Chew 81 Mg CHEW DAILY D-2000 Maximum Strength (Cholecalciferol) 2,000 Unit Tab 2,000 Units PO DAILY Allergies: Coded Allergies: amlodipine (Unverified Allergy, Severe, Anaphylaxis, 01/07/17) severe throat swelling ipratropium (Unverified Allergy, Intermediate, Swelling, 01/07/17) throat swelling Family History Both parents living Mother has HTN Father has hx Skin CA Social History No tobacco in 4 yrs, smoked 2ppd for 45 yrs prior Rare EtOH Lives alone, , from [facility], moved her in 2007 Previously worked as nurse aide Physical Exam Vital Signs Vital Signs Date Time Temp Pulse Resp B/P (MAP) Pulse Ox O2 Delivery O2 Flow Rate FiO2 03/13/17 14:11 104 52 151/65 (93) 96 Nasal Cannula 3.00 03/13/17 12:46 3 Nasal Cannula 03/13/17 12:45 99 Nasal Cannula 3.00 03/13/17 12:38 98 Room Air 03/13/17 12:35 98.8 116 44 167/72 (103) 98 Physical Exam GENERAL: This is a well-nourished, well-developed patient, in no apparent distress. HEAD: Atraumatic. Normocephalic. No temporal or scalp tenderness. No scleral icterus. Airway patent. NECK: Trachea midline, supple, nontender. CARDIO: Regular. RESP: Diffuse wheezing. Diminished in the lower lung gerber ABD: +BS, soft, non-tender, nondistended. EXT: Extremities without clubbing, cyanosis, or edema. NEURO: Awake and alert. Motor and sensory grossly within normal limits. Normal speech. Laboratory Laboratory Tests Test 03/13/17 12:45 White Blood Count 16.0 Red Blood Count 5.27 Hemoglobin 15.1 Hematocrit 46.8 Mean Corpuscular Volume 88.9 Mean Corpuscular Hemoglobin 28.7 Mean Corpuscular Hemoglobin Concent 32.3 Red Cell Distribution Width 14.3 Platelet Count 369 Mean Platelet Volume 6.9 Neutrophils (%) (Auto) 69.4 Lymphocytes (%) (Auto) 19.6 Monocytes (%) (Auto) 7.5 Eosinophils (%) (Auto) 2.8 Basophils (%) (Auto) 0.7 Neutrophils # (Auto) 11.1 Lymphocytes # (Auto) 3.2 Monocytes # (Auto) 1.2 Eosinophils # (Auto) 0.4 Basophils # (Auto) 0.1 CBC Comment DIFF FINAL Differential Comment Blood Urea Nitrogen 11 Creatinine 0.57 Random Glucose 119 Calcium Level 9.3 Sodium Level 139 Potassium Level 4.2 Chloride Level 101 Carbon Dioxide Level 31.4 Anion Gap 7 Estimat Glomerular Filtration Rate 107 Result Diagram: 03/13/17 1245 03/13/17 1245 Imaging Last Impressions Chest X-Ray 03/13/17 1243 Signed Impressions: Service Date/Time: Monday, March 13, 2017 13:25 - CONCLUSION: No acute disease. No significant change has occurred. Ricardo Dominique MD Septic Shock Reassessment Heart: Regular rate and rhythm Lungs: Diminished, Other Skin: Warm Caprini VTE Risk Assessment Caprini VTE Risk Assessment: Mod/High Risk (score >= 2) Caprini Risk Assessment Model Point Value = 1 Point Value = 2 Point Value = 3 Point Value = 5 Age 41-60 Minor surgery BMI > 25 kg/m2 Swollen legs Varicose veins or History of unexplained or recurrent spontaneous Oral contraceptives or hormone replacement Sepsis (< 1 month) Serious lung disease, including pneumonia (< 1 month) Abnormal pulmonary function Acute myocardial infarction Congestive heart failure (< 1 month) History of inflammatory bowel disease Medical patient at bed rest Age 61-74 Arthroscopic surgery Major open surgery (> 45 min) Laparoscopic surgery (> 45 min) Malignancy Confined to bed (> 72 hours) Immobilizing plaster cast Central venous access Age >= 75 History of VTE Family history of VTE Factor V Leiden Prothrombin [id number] Lupus anticoagulant Anticardiolipin antibodies Elevated serum homocysteine Heparin-induced thrombocytopenia Other congenital or acquired thrombophilia Stroke (< 1 month) Elective arthroplasty Hip, pelvis, or leg fracture Acute spinal cord injury (< 1 month) Prophylaxis Regimen Total Risk Factor Score Risk Level Prophylaxis Regimen 0-1 Low Early ambulation 2 Moderate Order ONE of the following: *Sequential Compression Device (SCD) *Heparin 5000 units SQ BID 3-4 Higher Order ONE of the following medications: *Heparin 5000 units SQ TID *Enoxaparin/Lovenox 40 mg SQ daily (WT < 150 kg, CrCl > 30 mL/min) *Enoxaparin/Lovenox 30 mg SQ daily (WT < 150 kg, CrCl > 10-29 mL/min) *Enoxaparin/Lovenox 30 mg SQ BID (WT < 150 kg, CrCl > 30 mL/min) AND/OR *Sequential Compression Device (SCD) 5 or more Highest Order ONE of the following medications: *Heparin 5000 units SQ TID (Preferred with Epidurals) *Enoxaparin/Lovenox 40 mg SQ daily (WT < 150 kg, CrCl > 30 mL/min) *Enoxaparin/Lovenox 30 mg SQ daily (WT < 150 kg, CrCl > 10-29 mL/min) *Enoxaparin/Lovenox 30 mg SQ BID (WT < 150 kg, CrCl > 30 mL/min) AND *Sequential Compression Device (SCD) Assessment and Plan Problem List: (1) COPD exacerbation ICD Codes: J44.1 - Chronic obstructive pulmonary disease with (acute) exacerbation Status: Chronic Plan: - Pt is a 66 y/o female with COPD on chronic supplemental O2 @ 1-1.5L, HTH, and Hypothyroidism. - Pt presented to the ED with increased SOB felt to likely be secondary to COPD exacerbation. - Pt was given Solu-Medrol 125mg x one dose in the ED and Duonebs x 6 - We will continue Solu-Medrol 60mg Q6H and Albuterol Nebs Q4H - Pt reportedly has an allergy to Ipratropium - Cont. Symbicort BID - Supplemental O2, titrate PRN - Pt completed a round of Levaquin as an outpt in the last week, we will not continue Abx at this time. - Supportive care - DVT prophylaxis with SCDs (2) Hypertension ICD Codes: I10 - Essential (primary) hypertension Status: Chronic Plan: - Home meds continued - Monitor (3) Hypothyroidism ICD Codes: E03.9 - Hypothyroidism, unspecified Status: Chronic Plan: - Home meds continued (4) Anxiety ICD Codes: F41.9 - Anxiety Status: Chronic Physician Certification 2 Midnight Certification Type: Admission for Inpatient Services Order for Inpatient Services The services are ordered in accordance with Medicare regulations or non- Medicare payer requirements, as applicable. In the case of services not specified as inpatient-only, they are appropriately provided as inpatient services in accordance with the 2-midnight benchmark. Estimated LOS (days): 3 3 days is the estimated time the patient will need to remain in the hospital, assuming treatment plan goals are met and no additional complications. Post-Hospital Plan: Not yet determined Liseth Pandey Mar 13, 2017 15:46
[2017-03-13] MEDS: methylPREDNISolone SOD SUCC 125 MG/2 ML VIAL IV PUSH SCH (17:59)
[2017-03-13] MEDS: RESP: ALBUTEROL 2.5 MG/3 ML NEB (SCH) NEB (20:39)
[2017-03-13] MEDS: guaiFENesin E.R. 600 MG TAB PO SCH (21:02)
[2017-03-13] MEDS: ATORVASTATIN 10 MG TAB PO SCH (21:03)
[2017-03-13] MEDS: BUDESONIDE-FORMOTEROL 80/4.5 MCG INHALER INH SCH (21:03)
[2017-03-13] MEDS: TEMAZEPAM 15 MG CAP PO PRN (21:03)
[2017-03-14] VITALS (8 sets, daily range): BP systolic 116–137; BP diastolic 58–77; PULSE 97–130; RESP 18–24; TEMP 96.8–97.7; O2SAT 93–97
[2017-03-14] MEDS: methylPREDNISolone SOD SUCC 125 MG/2 ML VIAL IV PUSH SCH ×5 (00:49→23:34)
[2017-03-14] MEDS: RESP: ALBUTEROL 2.5 MG/3 ML NEB (SCH) NEB ×6 (01:19→21:31)
[2017-03-14] MEDS: guaiFENesin E.R. 600 MG TAB PO SCH ×2 (08:16→19:56)
[2017-03-14] MEDS: ASPIRIN 81 MG CHEW TAB CHEW SCH (08:16)
[2017-03-14] MEDS: DILTIAZEM-CD 240 MG CAP ER PO SCH (08:16)
[2017-03-14] MEDS: LEVOTHYROXINE SODIUM 25 MCG TAB PO SCH (08:16)
[2017-03-14] MEDS: BUDESONIDE-FORMOTEROL 80/4.5 MCG INHALER INH SCH ×2 (08:17→19:56)
[2017-03-14] MEDS: VENLAFAXINE HCL XR 75 MG CAP PO SCH (08:19)
--- NOTE | 2017-03-14 10:58 | HHI.PR ---
Subjective Remarks Pt feeling slightly better today Less SOB Objective Vitals Vital Signs Date Time Temp Pulse Resp B/P (MAP) Pulse Ox O2 Delivery O2 Flow Rate FiO2 03/14/17 08:38 97 Nasal Cannula 2.00 03/14/17 08:04 96.9 105 18 124/77 (93) 97 03/14/17 04:00 97 24 97 03/14/17 00:00 97.4 130 20 116/58 (77) 95 03/13/17 20:43 94 Nasal Cannula 3.00 03/13/17 20:00 97.5 130 22 135/60 (85) 94 03/13/17 16:35 97.7 124 20 139/76 (97) 94 03/13/17 15:45 03/13/17 15:37 118 28 118/53 (74) 95 Nasal Cannula 3.00 03/13/17 14:11 104 52 151/65 (93) 96 Nasal Cannula 3.00 03/13/17 12:46 3 Nasal Cannula 03/13/17 12:45 99 Nasal Cannula 3.00 03/13/17 12:38 98 Room Air 03/13/17 12:35 98.8 116 44 167/72 (103) 98 Result Diagram: 03/13/17 1245 03/13/17 1245 Imaging Last Impressions Chest X-Ray 03/13/17 1243 Signed Impressions: Service Date/Time: Monday, March 13, 2017 13:25 - CONCLUSION: No acute disease. No significant change has occurred. Ricardo Dominique MD Objective Remarks General: NAD, AAOx3 Chest: Mild scattered wheezing in mid lungs, decreased air movement Cardiac: Regular Abd: +BS, soft ND/NT Ext: No edema A/P Problem List: (1) COPD exacerbation ICD Codes: J44.1 - Chronic obstructive pulmonary disease with (acute) exacerbation Status: Chronic Plan: - Pt is a 66 y/o female with COPD on chronic supplemental O2 @ 1-1.5L, HTH, and Hypothyroidism. - Pt presented to the ED with increased SOB felt to likely be secondary to COPD exacerbation. - Pt was given Solu-Medrol 125mg x one dose in the ED and Duonebs x 6 - Continue Solu-Medrol 60mg Q6H and Albuterol Nebs Q4H - Pt reportedly has an allergy to Ipratropium - Cont. Symbicort BID - Supplemental O2, titrate down to 1-2L which is her baseline - Supportive care - DVT prophylaxis with SCDs (2) Hypertension ICD Codes: I10 - Essential (primary) hypertension Status: Chronic Plan: - Home meds continued - Monitor (3) Hypothyroidism ICD Codes: E03.9 - Hypothyroidism, unspecified Status: Chronic Plan: - Home meds continued (4) Anxiety ICD Codes: F41.9 - Anxiety Status: Chronic Assessment and Plan Patient examined. Assessment and plan formulated with Liseth Pandey PA-C. I agree with the above. copd exacerbation wean oxygen. cont currently rx and possible d/c tomorrow. Liseth Pandey Mar 14, 2017 10:58 José Manuel Ellis MD Mar 14, 2017 11:06
[2017-03-14] MEDS: SODIUM CHLORIDE 0.9% FLUSH 10 ML FLUSH IVF PRN (13:08)
--- NOTE | 2017-03-14 17:28 | EKG ---
Date Performed: 03/13/2017 Time Performed: 12:40:53 PTAGE: 66 years EKG: SINUS TACHYCARDIA NONSPECIFIC ST & T-WAVE ABNORMALITY ABNORMAL ECG PREVIOUS TRACING : 12/05/2016 04.03 DOCTOR: Malcolm Phillips Interpretating Date/Time 03/14/2017 17:26:50
[2017-03-14] MEDS: ATORVASTATIN 10 MG TAB PO SCH (19:56)
[2017-03-14] MEDS: TEMAZEPAM 15 MG CAP PO PRN (21:25)
[2017-03-15] VITALS (9 sets, daily range): BP systolic 120–184; BP diastolic 59–115; PULSE 104–158; RESP 16–36; TEMP 95.2–97.6; O2SAT 74–100
[2017-03-15] MEDS: RESP: ALBUTEROL 2.5 MG/3 ML NEB (SCH) NEB ×5 (00:47→19:52)
[2017-03-15] MEDS: methylPREDNISolone SOD SUCC 125 MG/2 ML VIAL IV PUSH SCH ×4 (05:36→23:36)
[2017-03-15] MEDS: LEVOTHYROXINE SODIUM 25 MCG TAB PO SCH (09:08)
[2017-03-15] MEDS: BUDESONIDE-FORMOTEROL 80/4.5 MCG INHALER INH SCH ×2 (09:08→19:29)
[2017-03-15] MEDS: VENLAFAXINE HCL XR 75 MG CAP PO SCH (09:08)
[2017-03-15] MEDS: ASPIRIN 81 MG CHEW TAB CHEW SCH (09:08)
[2017-03-15] MEDS: DILTIAZEM-CD 240 MG CAP ER PO SCH (09:08)
[2017-03-15] MEDS: guaiFENesin E.R. 600 MG TAB PO SCH ×2 (09:08→19:29)
--- NOTE | 2017-03-15 11:01 | HHI.PR ---
Subjective Remarks Pt reports that she is starting to bring up some green phlegm She reports that she has been quite anxious because of her respiratory issues and in the past she has used Xanax and it has helped Pt did not sleep well last night. Objective Vitals Vital Signs Date Time Temp Pulse Resp B/P (MAP) Pulse Ox O2 Delivery O2 Flow Rate FiO2 03/15/17 08:44 Nasal Cannula 2.00 03/15/17 08:00 96.1 116 18 149/78 (101) 93 03/15/17 00:24 96.0 114 18 146/59 (88) 93 03/14/17 22:07 Nasal Cannula 2.00 03/14/17 21:31 96 Nasal Cannula 2.00 03/14/17 20:00 97.6 98 18 126/59 (81) 96 03/14/17 16:00 96.8 107 18 137/62 (87) 93 03/14/17 12:00 97.7 111 18 135/67 (89) 94 Result Diagram: 03/13/17 1245 03/13/17 1245 Other Results Laboratory Tests Test 03/13/17 12:45 White Blood Count 16.0 TH/MM3 Red Blood Count 5.27 MIL/MM3 Hemoglobin 15.1 GM/DL Hematocrit 46.8 % Mean Corpuscular Volume 88.9 FL Mean Corpuscular Hemoglobin 28.7 PG Mean Corpuscular Hemoglobin Concent 32.3 % Red Cell Distribution Width 14.3 % Platelet Count 369 TH/MM3 Mean Platelet Volume 6.9 FL Neutrophils (%) (Auto) 69.4 % Lymphocytes (%) (Auto) 19.6 % Monocytes (%) (Auto) 7.5 % Eosinophils (%) (Auto) 2.8 % Basophils (%) (Auto) 0.7 % Neutrophils # (Auto) 11.1 TH/MM3 Lymphocytes # (Auto) 3.2 TH/MM3 Monocytes # (Auto) 1.2 TH/MM3 Eosinophils # (Auto) 0.4 TH/MM3 Basophils # (Auto) 0.1 TH/MM3 CBC Comment DIFF FINAL Differential Comment Blood Urea Nitrogen 11 MG/DL Creatinine 0.57 MG/DL Random Glucose 119 MG/DL Calcium Level 9.3 MG/DL Sodium Level 139 MEQ/L Potassium Level 4.2 MEQ/L Chloride Level 101 MEQ/L Carbon Dioxide Level 31.4 MEQ/L Anion Gap 7 MEQ/L Estimat Glomerular Filtration Rate 107 ML/MIN Imaging Last Impressions Chest X-Ray 03/13/17 1243 Signed Impressions: Service Date/Time: Thursday, March 13, 2017 13:25 - CONCLUSION: No acute disease. No significant change has occurred. Ricardo Dominique MD Objective Remarks General: NAD, AAOx3 Chest: Mild scattered wheezing in mid lungs, decreased air movement Cardiac: Regular Abd: +BS, soft ND/NT Ext: No edema A/P Problem List: (1) COPD exacerbation ICD Codes: J44.1 - Chronic obstructive pulmonary disease with (acute) exacerbation Status: Chronic Plan: - Pt is a 66 y/o female with COPD on chronic supplemental O2 @ 1-1.5L, HTH, and Hypothyroidism. - Pt presented to the ED with increased SOB felt to likely be secondary to COPD exacerbation. - Pt was given Solu-Medrol 125mg x one dose in the ED and Duonebs x 6 - Continue Solu-Medrol 60mg Q6H and Albuterol Nebs Q4H - Pt reportedly has an allergy to Ipratropium - Cont. Symbicort BID - Cont. Mucinex and add Mucomyst - Xanax PRN anxiety - Supplemental O2, titrated down to 2L which is her baseline - Supportive care - DVT prophylaxis with SCDs (2) Hypertension ICD Codes: I10 - Essential (primary) hypertension Status: Chronic Plan: - Home meds continued - Monitor (3) Hypothyroidism ICD Codes: E03.9 - Hypothyroidism, unspecified Status: Chronic Plan: - Home meds continued (4) Anxiety ICD Codes: F41.9 - Anxiety Status: Chronic Plan: - Xanax PRN Assessment and Plan Patient examined. Assessment and plan formulated with Liseth Pandey PA-C. I agree with the above. copd exacerbation. slow improvement. should be ready for dc home tomorrow. Liseth Pandey Mar 15, 2017 11:01 José Manuel Ellis MD Mar 15, 2017 13:02
[2017-03-15] MEDS ORDERED: ALPRAZolam 0.5 MG TAB PO ONE (11:15)
[2017-03-15] MEDS ORDERED: RESP: ACETYLCYSTEINE 20% 30 ML NEB NEB SCH (12:00)
[2017-03-15] MEDS: ATORVASTATIN 10 MG TAB PO SCH (19:30)
[2017-03-15] MEDS: ACETYLCYSTEINE NEB SCH (19:52)
[2017-03-15] MEDS: ALPRAZolam 0.5 MG TAB PO PRN (20:39)
--- NOTE | 2017-03-15 21:55 | PD.CONS ---
[facility] Service Critical Care Medicine Consult Requested By Primary Care Physician BIJAN Ayala History of Present Illness 66-year-old female with history of COPD chronically on 1.5L of supplemental O2, HTN, hyperlipidemia and depression/anxiety admitted on 03/13 for evaluation of shortness of breath. Patient reports that for the past week or so she has been having worsening shortness of breath. She follows with Dr. Longoria as an outpt and was seen in his office last week. She was having issues with increased SOB at that time and her Symbicort was stopped and she was started on Stiolto Respimat nebulized medication but this did not help. She was also give Levaquin 500mg po daily which she completed a about a week long regimen. She has been taking Albuterol nebs Q4-5 hours and Ventolin PRN. Today while on the floor her SOB became more severe and she became hypoxemic. The rapid response team was activated and patient was transferred to ICU with acute on chronic respiratory failure. Review of Systems Constitutional: DENIES: Diaphoretic episodes, Fatigue, Fever, Weight gain, Weight loss, Chills, Dizziness, Change in appetite, Night Sweats Endocrine: DENIES: Abnorml menstrual pattern, Heat/cold intolerance, Polydipsia , Polyuria, Polyphagia Eyes: DENIES: Blurred vision, Diplopia, Eye inflammation, Eye pain, Vision loss , Photosensitivity, Double Vision Ears, nose, mouth, throat: DENIES: Tinnitus, Hearing loss, Vertigo, Nasal discharge, Oral lesions, Throat pain, Hoarseness, Ear Pain, Running Nose, Epistaxis, Sinus Pain, Toothache, Odynophagia Respiratory: COMPLAINS OF: Wheezing, Sputum production, Shortness of breath, DENIES: Apneas, Cough, Snoring, Hemoptysis Cardiovascular: DENIES: Chest pain, Palpitations, Syncope, Dyspnea on Exertion , PND, Lower Extremity Edema, Orthopnea, Claudication Gastrointestinal: DENIES: Abdominal pain, Black stools, Bloody stools, Constipation, Diarrhea, Nausea, Vomiting, Difficulty Swallowing, Anorexia Genitourinary: DENIES: Abnormal vaginal bleeding, Dysmenorrhea, Dyspareunia, Sexual dysfunction, Urinary frequency, Urinary incontinence, Urgency, Hematuria , Dysuria, Nocturia, Vaginal discharge Musculoskeletal: DENIES: Joint pain, Muscle aches, Stiffness, Joint Swelling, Back pain, Neck pain Integumentary: DENIES: Abnormal pigmentation, Pruritus, Rash, Nail changes, Breast masses, Breast skin changes, Nipple discharge Hematologic/lymphatic: DENIES: Bruising, Lymphadenopathy Immunologic/allergic: DENIES: Eczema, Urticaria Neurologic: DENIES: Abnormal gait, Headache, Localized weakness, Paresthesias, Seizures, Speech Problems, Tremor, Poor Balance Psychiatric: DENIES: Anxiety, Confusion, Mood changes, Depression, Hallucinations, Agitation, Suicidal Ideation, Homicidal Ideation, Delusions Past Family Social History Allergies: Coded Allergies: amlodipine (Unverified Allergy, Severe, Anaphylaxis, 01/07/17) severe throat swelling ipratropium (Unverified Allergy, Intermediate, Swelling, 01/07/17) throat swelling Past Medical History COPD Depression/anxiety HTN Hyperlipidemia Hx Skin CA Hx of tobacco use Past Surgical History Skin CA removed from scalp (she thinks SCC) T&A Left ulnar nerve surgery Reported Medications Reported Meds & Active Scripts Active Diltiazem ER 24 HR 240 Mg Ad 240 Mg PO DAILY Levothyroxine (Levothyroxine Sodium) 25 Mcg Tab 25 Mcg PO DAILY Venlafaxine ER 24 HR (Venlafaxine HCl) 75 Mg Cap 75 Mg PO DAILY Atorvastatin (Atorvastatin Calcium) 10 Mg Tab 10 Mg PO HS Ventolin Hfa 18 GM Inh (Albuterol Sulfate) 90 Mcg/Act Aer 2 Puff INH Q4H PRN Albuterol Neb (Albuterol Sulfate) 2.5 Mg/0.5 Ml Neb 2.5 Mg NEB Q4HR NEB PRN Albuterol Sulfate Inhalation Solution is concentrated & must be diluted. Read complete instructions before using. Symbicort Inh (Budesonide/Formoterol Fumarate) 80-4.5 Mcg/Act Aero 2 Puff INH Q12HR Reported Levaquin (Levofloxacin) 500 Mg Tablet 500 Mg PO DAILY Aspirin 81 Mg Chew 81 Mg CHEW DAILY D-2000 Maximum Strength (Cholecalciferol) 2,000 Unit Tab 2,000 Units PO DAILY Active Ordered Medications Current Medications Medications (Trade) Dose Ordered Sig/Chava Route PRN Reason Start Time Stop Time Status Last Admin Dose Admin Sodium Chloride (NS Flush) 2 ml UNSCH PRN IVF FLUSH AFTER USING IV ACCESS 03/13/17 12:45 03/14/17 13:08 Methylprednisolone Sodium Succinate (SoluMEDROL INJ) 60 mg Q6HR IV PUSH 03/13/17 18:00 03/15/17 23:36 Albuterol Sulfate (Albuterol Neb) 2.5 mg Q4HR NEB NEB 03/13/17 16:00 03/16/17 00:23 Aspirin (Aspirin Chew) 81 mg DAILY CHEW 03/14/17 09:00 03/15/17 09:08 Atorvastatin Calcium (Lipitor) 10 mg HS PO 03/13/17 21:00 03/15/17 19:30 Budesonide/ Formoterol Fumarate (Symbicort 80-4.5 Mcg Inh) 2 puff Q12HR INH 03/13/17 21:00 03/15/17 19:29 Diltiazem HCl (Cardizem Cd) 240 mg DAILY PO 03/14/17 09:00 03/15/17 09:08 Levothyroxine Sodium (Synthroid) 25 mcg DAILY PO 03/14/17 09:00 03/15/17 09:08 Venlafaxine HCl (Effexor Xr) 75 mg DAILY PO 03/14/17 09:00 03/15/17 09:08 Acetaminophen (Tylenol) 650 mg Q4H PRN PO fever or pain 03/13/17 15:45 03/14/17 21:26 Ondansetron HCl (Zofran Inj) 4 mg Q6H PRN IV nausea 03/13/17 15:45 Guaifenesin (Mucinex Er) 600 mg BID PO 03/13/17 21:00 03/15/17 19:29 Temazepam (Restoril) 15 mg HS PRN PO INSOMNIA 03/13/17 20:45 03/14/17 21:25 Alprazolam (Xanax) 0.5 mg Q6H PRN PO anxiety 03/15/17 12:00 03/15/17 20:39 Non-Formulary Medication NON-FORMULARY: MUCOMYST (ACETYLCYSTEI... Q4HR NEB NEB 03/15/17 12:00 03/15/17 19:52 Family History Both parents living Mother has HTN Father has hx Skin CA Social History No tobacco in 4 yrs, smoked 2ppd for 45 yrs prior Rare EtOH Lives alone, , from [facility], moved her in 2007 Previously worked as nurse aide Physical Exam Vital Signs Vital Signs Date Time Temp Pulse Resp B/P (MAP) Pulse Ox O2 Delivery O2 Flow Rate FiO2 03/15/17 20:15 Non-Rebreather 15.00 03/15/17 19:30 Nasal Cannula 2.00 03/15/17 16:00 96.4 108 20 132/74 (93) 92 03/15/17 12:00 96.2 114 20 120/61 (80) 93 03/15/17 08:44 Nasal Cannula 2.00 03/15/17 08:00 96.1 116 18 149/78 (101) 93 03/15/17 00:24 96.0 114 18 146/59 (88) 93 03/14/17 22:07 Nasal Cannula 2.00 Physical Exam GENERAL: Well-nourished, obese, well-developed patient. Improving on 40% face mask SKIN: Warm and dry. HEAD: Normocephalic. EYES: No scleral icterus. No injection or drainage. NECK: Supple, trachea midline. No JVD or lymphadenopathy. CARDIOVASCULAR: Regular rate and rhythm without murmurs, gallops, or rubs. RESPIRATORY: Breath sounds equal bilaterally. No accessory muscle use. Occasional wheezes and rhonchi bilaterally GASTROINTESTINAL: Abdomen soft, non-tender, nondistended. MUSCULOSKELETAL: No cyanosis, or edema. BACK: Nontender without obvious deformity. NEURO EXAM: GCS: M 6 V 5 E 4 Mental Status: The patient is alert and oriented to person, place, and time with normal speech. Cranial Nerves: Visual acuity intact bilaterally. Visual gerber normal in all quadrants. Pupils are round, reactive to light. Extraocular movements are intact without ptosis. Hearing is normal bilaterally. Voice is normal. Tongue protrudes midline and moves symmetrically. Reflexes: Biceps, patellar, and Achilles are 2/4 bilaterally. No clonus. Result Diagram: 03/13/17 1245 03/13/17 1245 Assessment and Plan Assessment and Plan COPD exacerbation - chronic home O2 - Continue Solu-Medrol 60mg Q6H - Continue DuoNeb's scheduled and when necessary - Cont. Symbicort BID - Cont. Mucinex - DC Mucomyst - patient got worse today after Mucomyst treatment - O2, titrated as tolerated to keep sats above 92 Hypertension - Home meds continued - Monitor telemetry Hypothyroidism - Levothyroxine Anxiety - Xanax PRN DVT GI prophylaxis - Teds SCDs - Subcutaneous heparin - Regular diet, Pepcid Critical Care: The total critical care time was 35 minutes. Time to perform other separately billable procedures was not included in the critical care time. Victor M Echevarria MD Mar 15, 2017 21:55
[2017-03-16] VITALS (14 sets, daily range): BP systolic 120–167; BP diastolic 59–80; PULSE 82–108; RESP 19–28; TEMP 97.4–97.8; O2SAT 93–100
[2017-03-16] MEDS: RESP: ALBUTEROL 2.5 MG/3 ML NEB (SCH) NEB ×7 (00:23→23:52)
[2017-03-16] MEDS: ALPRAZolam 0.5 MG TAB PO PRN ×2 (02:43→21:48)
[2017-03-16] MEDS: ACETYLCYSTEINE NEB SCH ×3 (04:00→08:00)
[2017-03-16] MEDS: HEPARIN SODIUM - SQ 10,000 UNITS/ML VIAL SQ SCH ×3 (05:22→21:48)
[2017-03-16] MEDS: methylPREDNISolone SOD SUCC 125 MG/2 ML VIAL IV PUSH SCH ×3 (05:22→18:15)
--- NOTE | 2017-03-16 06:07 | RADRPT ---
EXAM DATE/TIME: 03/16/2017 05:06 [facility] COMPARISON: CHEST SINGLE AP, March 13, 2017, 13:25. INDICATIONS : Short of breath. MEDICAL HISTORY : Chronic obstructive pulmonary disease. SURGICAL HISTORY : None. ENCOUNTER: Subsequent ACUITY: 3 days PAIN SCORE: 0/10 LOCATION: Bilateral chest FINDINGS: A single view of the chest demonstrates the lungs to be hyperaerated without evidence of mass, infilt rate or effusion. The cardiomediastinal contours are unremarkable. Osseous structures are intact. CONCLUSION: Hyperinflation which can be seen with COPD. Keny Sauceda MD on March 16, 2017 at 6:04 Board Certified Radiologist. This report was verified electronically.
[2017-03-16] MEDS: ASPIRIN 81 MG CHEW TAB CHEW SCH (08:38)
[2017-03-16] MEDS: guaiFENesin E.R. 600 MG TAB PO SCH ×2 (08:38→20:47)
[2017-03-16] MEDS: DILTIAZEM-CD 240 MG CAP ER PO SCH (08:38)
[2017-03-16] MEDS: VENLAFAXINE HCL XR 75 MG CAP PO SCH (08:38)
[2017-03-16] MEDS: FAMOTIDINE 20 MG TAB PO SCH ×2 (08:39→20:47)
[2017-03-16] MEDS: LEVOTHYROXINE SODIUM 25 MCG TAB PO SCH (08:39)
[2017-03-16] MEDS: BUDESONIDE-FORMOTEROL 80/4.5 MCG INHALER INH SCH ×2 (08:40→20:48)
--- NOTE | 2017-03-16 10:32 | HHI.CCPN ---
Subjective Remarks/Hospital Course 66-year-old female with history of COPD chronically on 1.5L of supplemental O2, HTN, hyperlipidemia and depression/anxiety admitted on 03/13 for evaluation of shortness of breath. Patient reports that for the past week or so she has been having worsening shortness of breath. She follows with Dr. Longoria as an outpt and was seen in his office last week. She was having issues with increased SOB at that time and her Symbicort was stopped and she was started on Stiolto Respimat nebulized medication but this did not help. She was also give Levaquin 500mg po daily which she completed a about a week long regimen. She has been taking Albuterol nebs Q4-5 hours and Ventolin PRN. Today while on the floor her SOB became more severe and she became hypoxemic. The rapid response team was activated and patient was transferred to ICU with acute on chronic respiratory failure. Subjective 03/16: Resting in bed in no acute distress . Remains on nasal cannula. Refusing Mucomyst aerosols. Denies chest pain currently. Objective Vital Signs Date Time Temp Pulse Resp B/P (MAP) Pulse Ox O2 Delivery O2 Flow Rate FiO2 03/16/17 10:00 103 03/16/17 08:27 94 Nasal Cannula 3.00 03/16/17 08:00 97.6 21 157/67 (97) Intake and Output 03/16/17 03/16/17 03/17/17 08:00 16:00 00:00 Intake Total 480 ml Output Total 700 ml Balance -220 ml Result Diagram: 03/13/17 1245 03/13/17 1245 Imaging Last Impressions Chest X-Ray 03/16/17 0600 Signed Impressions: Service Date/Time: Thursday, March 16, 2017 05:06 - CONCLUSION: Hyperinflation which can be seen with COPD. Keny Sauceda MD Objective Remarks GENERAL: Well-nourished, obese, well-developed patient. Improving on 40% face mask SKIN: Warm and dry. HEAD: Normocephalic. EYES: No scleral icterus. No injection or drainage. NECK: Supple, trachea midline. No JVD or lymphadenopathy. CARDIOVASCULAR: Regular rate and rhythm without murmurs, gallops, or rubs. RESPIRATORY: Breath sounds equal bilaterally. No accessory muscle use. Occasional wheezes and rhonchi bilaterally GASTROINTESTINAL: Abdomen soft, non-tender, nondistended. MUSCULOSKELETAL: No cyanosis, or edema. BACK: Nontender without obvious deformity. NEURO EXAM: Cranial nerves II through XII grossly intact A/P Assessment and Plan Neuro/Psych: Depression/anxiety As needed alprazolam 0.5 mg he 6 hours when necessary anxiety Continue venlafaxine 75 mg daily for depression. CV: Hypertension Dyslipidemia Continue diltiazem 240 mg by mouth daily for hypertension Continue atorvastatin 10 mg by mouth daily for dyslipidemia Kidney aspirin 81 mg by mouth daily/home medication Resp: Acute on chronic respiratory failure COPD exacerbation Ongoing tobaccoism - chronic home O2 - Continue Solu-Medrol 60mg Q6H - Continue albuterol nebulizers every 4 hours with every 2 hours. Breakthrough - Cont. budesonide/formoterol 80/4.5 2 puffs twice a day - Cont. guaifenesin 600 mg twice a day - DC Mucomyst - patient got worse today after Mucomyst treatment - O2, titrated as tolerated to keep sats above 92 - Tobacco cessation will be encouraged GI: Advance diet as tolerated Famotidine for GI prophylaxis : No indication for Stern catheter Endo: Hypothyroidism Continue levothyroxine 25 mics grams by mouth daily Sliding-scale insulin if indicated to maintain euglycemia Renal: Creatinine was within normal limits Monitor urine output Accurate I's and O's Heme: CBC is currently pending ID: MRSA naris positive [place] protocol initiated orders FEN: Replace electrolytes as clinically indicated MSK: Continue choleCalciferol 2000 units daily. Access - Utilize peripheral IV. Prophylaxis - GI - famotidine - DVT - heparin subcutaneous Level II follow-up. Patient is stable from a critical care medicine standpoint. Assign care to hospitalist in a.m. 03/17. Yannick Moraes MD Mar 16, 2017 10:32
[2017-03-16 17:07] LABS: HEMATOCRIT 43.3 % (35.0-46.0); MEAN CELL VOLUME 89.1 FL (80.0-100.0); MEAN CORPUSCULAR HEMOGLOBIN 28.7 PG (27.0-34.0); MEAN CORPUSCULAR HGB CONC 32.2 % (32.0-36.0); PLATELET COUNT 306 TH/MM3 (150-450); RED BLOOD COUNT 4.86 MIL/MM3 (4.00-5.30); RED CELL DISTRIBUTION WIDTH 14.6 % (11.6-17.2); WHITE BLOOD COUNT 27.3 TH/MM3 (4.0-11.0)
[2017-03-16 17:10] LABS: HEMO FLAGS AUTO DIFF
[2017-03-16 17:34] LABS: ALKALINE PHOSPHATASE 100 U/L (45-117); ALT (GPT) 52 U/L (10-53); ANION GAP 8 MEQ/L (5-15); AST (GOT) 21 U/L (15-37); BICARBONATE 31.5 MEQ/L (21.0-32.0); BLOOD UREA NITROGEN 18 MG/DL (7-18); CHLORIDE 98 MEQ/L (98-107); GLOMERULAR FILTRATION RATE 72 ML/MIN (>89); MAGNESIUM 2.4 MG/DL (1.5-2.5); POTASSIUM 4.4 MEQ/L (3.5-5.1); SODIUM (NA) 137 MEQ/L (136-145); TOTAL BILIRUBIN ADULT 0.2 MG/DL (0.2-1.0)
[2017-03-16 18:09] LABS: METAMYELOCYTES 1 % (0-1); MYELOCYTES 1 % (0-0); NEUTROPHIL # MANUAL DIFF 25.9 TH/MM3 (1.8-7.7); POLYS (SEG NEUTROPHILS) 93 % (16-70); WBC DIFF SAMPLE 100
[2017-03-16 18:11] LABS: PLATELET ESTIMATE SMEAR NORMAL (NORMAL); PLATELET MORPHOLOGY NORMAL (NORMAL); SCAN/DIFF FINAL DIFF MANUAL
[2017-03-16] MEDS: ATORVASTATIN 10 MG TAB PO SCH (20:47)
[2017-03-16] MEDS: MUPIROCIN 2% OINT 1 APPLIC/GM SYR EACH NARE SCH (21:47)
[2017-03-16] MEDS: TEMAZEPAM 15 MG CAP PO PRN (21:48)
[2017-03-17] VITALS (8 sets, daily range): BP systolic 103–171; BP diastolic 54–80; PULSE 84–126; RESP 16–22; TEMP 97.2–98.1; O2SAT 92–99
[2017-03-17] MEDS: methylPREDNISolone SOD SUCC 125 MG/2 ML VIAL IV PUSH SCH ×3 (00:30→12:44)
[2017-03-17] MEDS: RESP: ALBUTEROL 2.5 MG/3 ML NEB (SCH) NEB ×4 (03:24→15:39)
[2017-03-17] MEDS: HEPARIN SODIUM - SQ 10,000 UNITS/ML VIAL SQ SCH ×3 (05:50→20:25)
[2017-03-17] MEDS: LEVOTHYROXINE SODIUM 25 MCG TAB PO SCH (09:08)
[2017-03-17] MEDS: BUDESONIDE-FORMOTEROL 80/4.5 MCG INHALER INH SCH ×2 (09:08→20:26)
[2017-03-17] MEDS: VENLAFAXINE HCL XR 75 MG CAP PO SCH (09:08)
[2017-03-17] MEDS: DILTIAZEM-CD 240 MG CAP ER PO SCH (09:08)
[2017-03-17] MEDS: guaiFENesin E.R. 600 MG TAB PO SCH ×2 (09:08→20:25)
[2017-03-17] MEDS: MUPIROCIN 2% OINT 1 APPLIC/GM SYR EACH NARE SCH ×2 (09:08→20:25)
[2017-03-17] MEDS: ASPIRIN 81 MG CHEW TAB CHEW SCH (09:08)
[2017-03-17] MEDS: FAMOTIDINE 20 MG TAB PO SCH ×2 (09:08→20:25)
--- NOTE | 2017-03-17 10:24 | MB ---
cc: SWATI LONGORIA M.D. DATE OF CONSULTATION 03/17/2017 REASON FOR CONSULTATION COPD exacerbation. HISTORY OF PRESENT ILLNESS Mrs. Newberry is a 66-year-old female with a known history of severe COPD, chronic respiratory failure on oxygen therapy. She had increasing shortness of breath as an outpatient, given bronchodilator therapy, antibiotic therapy, oral steroid therapy, however her shortness of breath had worsened and she came to the emergency room with significant shortness of breath, chest tightness, associated hypoxemia, given oxygen therapy, IV steroids and admitted to the hospital for COPD exacerbation. She denies a history of fever or chills. She had a cough initially without expectoration, presently productive of whitish mucoid sputum. She has no hemoptysis. She has no history of TB or previous industrial exposure. PAST MEDICAL HISTORY That of: 1. COPD 2. Chronic respiratory failure 3. Hypertension 4. Hyperlipidemia 5. Mood disorder namely anxiety and depression. MEDICATIONS AT HOME 1. Symbicort twice daily. Was given a trial of which she did not respond well to and went back on to her Symbicort. 2. Diltiazem 3. Levothyroxine 4. Venlafaxine 5. Atorvastatin 6. As needed Albuterol recently 7. Levaquin 8. Calcium 9. Vitamin D ALLERGIES AMLODIPINE, QUESTIONABLY ATROVENT. Atrovent. FAMILY HISTORY Positive for hypertension, skin cancer, otherwise unremarkable. SOCIAL HISTORY A Long heavy smoking history about two packs a day for over 45 years, however has not smoked in several years now. Drinks alcohol on rare occasions. Does not use drugs. , lives by herself. REVIEW OF SYSTEMS A 12-point review of systems as per HPI and past history otherwise negative. PHYSICAL EXAM On exam, the patient is alert, pulse 100, respiration 26, blood pressure 150/60. Oxygen saturation 96% on 3 liters oxygen nasal cannula. HEENT: Exam unremarkable. Eyes without icterus. NECK: Without adenopathy or thyroid enlargement. Central trachea. CHEST: Scattered rhonchi bilaterally, decreased with cough. CARDIAC: PMI distant. S1-S2 audible. No murmur or rub. ABDOMEN: Lax, audible bowel sounds. EXTREMITIES: No clubbing, cyanosis or edema. LABORATORY DATA White count is 16,000, hemoglobin 15, hematocrit 46, platelets are 369,000. Sodium 139, potassium 4.2, BUN 11, creatinine 0.7. Chest x-ray, no acute abnormality seen. IMPRESSION 1. COPD exacerbation 2. Chronic respiratory failure on oxygen therapy 3. Hypertension 4. Mood disorder PLAN The patient will be maintained on oxygen therapy as needed. IV steroids have been initiated and appropriately so. Empiric antibiotic therapy as well as inhaled bronchodilators will be given. Course followed closely and depending on progress would proceed accordingly. I do thank you for asking me to partake in Mrs. Coni anthony. Swati Longoria MD WWW/ELVIN /9:05 AM /10:08 AM
--- NOTE | 2017-03-17 11:30 | HHI.PR ---
Subjective Remarks Pt is feeling overall better with regards to her breathing She is still having anxiety issues and asking to increase the Effexor Pt still on 3L NC Objective Vitals Vital Signs Date Time Temp Pulse Resp B/P (MAP) Pulse Ox O2 Delivery O2 Flow Rate FiO2 03/17/17 08:00 97.7 113 20 139/66 (90) 93 03/17/17 07:53 93 Nasal Cannula 3.00 03/17/17 04:00 Nasal Cannula 3.00 03/17/17 04:00 97.2 85 16 103/55 (71) 96 03/17/17 00:00 Nasal Cannula 3.00 03/17/17 00:00 98.1 84 20 104/54 (71) 99 03/16/17 21:32 101 03/16/17 21:00 94 Nasal Cannula 3.00 03/16/17 20:00 97.4 82 22 133/59 (83) 95 03/16/17 20:00 Nasal Cannula 3.00 03/16/17 18:00 103 03/16/17 16:00 106 03/16/17 16:00 97.8 106 19 167/77 (107) 94 03/16/17 14:00 95 03/16/17 12:00 97.7 108 28 141/64 (89) 93 03/16/17 12:00 108 Result Diagram: 03/16/17 1654 03/16/17 1654 Other Results Laboratory Tests Test 03/16/17 01:20 03/16/17 16:54 Nasal Screen MRSA (PCR) MRSA DETECTED White Blood Count 27.3 TH/MM3 Red Blood Count 4.86 MIL/MM3 Hemoglobin 13.9 GM/DL Hematocrit 43.3 % Mean Corpuscular Volume 89.1 FL Mean Corpuscular Hemoglobin 28.7 PG Mean Corpuscular Hemoglobin Concent 32.2 % Red Cell Distribution Width 14.6 % Platelet Count 306 TH/MM3 Mean Platelet Volume 7.2 FL CBC Comment AUTO DIFF Differential Total Cells Counted 100 Neutrophils % (Manual) 93 % Lymphocytes % 3 % Monocytes % 2 % Neutrophils # (Manual) 25.9 TH/MM3 Metamyelocytes 1 % Myelocytes 1 % Differential Comment FINAL DIFF MANUAL Platelet Estimate NORMAL Platelet Morphology Comment NORMAL Blood Urea Nitrogen 18 MG/DL Creatinine 0.80 MG/DL Random Glucose 330 MG/DL Total Protein 6.6 GM/DL Albumin 3.4 GM/DL Calcium Level 9.2 MG/DL Phosphorus Level 2.8 MG/DL Magnesium Level 2.4 MG/DL Alkaline Phosphatase 100 U/L Aspartate Amino Transf (AST/SGOT) 21 U/L Alanine Aminotransferase (ALT/SGPT) 52 U/L Total Bilirubin 0.2 MG/DL Sodium Level 137 MEQ/L Potassium Level 4.4 MEQ/L Chloride Level 98 MEQ/L Carbon Dioxide Level 31.5 MEQ/L Anion Gap 8 MEQ/L Estimat Glomerular Filtration Rate 72 ML/MIN Imaging Last Impressions Chest X-Ray 03/13/17 1243 Signed Impressions: Service Date/Time: Monday, March 13, 2017 13:25 - CONCLUSION: No acute disease. No significant change has occurred. Ricardo Dominique MD Objective Remarks General: NAD, AAOx3 Chest: Better aeration bilaterally Cardiac: Regular Abd: +BS, soft ND/NT Ext: No edema A/P Problem List: (1) COPD exacerbation ICD Codes: J44.1 - Chronic obstructive pulmonary disease with (acute) exacerbation Status: Chronic Plan: - Pt is a 66 y/o female with COPD on chronic supplemental O2 @ 1-1.5L, HTH, and Hypothyroidism. - Pt presented to the ED with increased SOB felt to likely be secondary to COPD exacerbation. - Pt was given Solu-Medrol 125mg x one dose in the ED and Duonebs x 6 - Pt reportedly has an allergy to Ipratropium - Mucomyst was added on 03/15 but she felt that this made her SOB worse and she had an episode of severe SOB and hypoxia and was transferred to ICU on 03/15. - The Mucomyst was stopped - Pt stabilized in the ICU and was transferred out on 03/16. - Pulmonary following. - Change Solu-Medrol to Prednisone 30mg BID - Cont. Albuterol Nebs Q4H - Cont. Symbicort BID - Cont. Mucinex PO - Xanax PRN anxiety - Increase her Venlafaxine to 150mg po daily - Supplemental O2, titrated down to 2L which is her baseline - Supportive care - DVT prophylaxis with SCDs (2) Hypertension ICD Codes: I10 - Essential (primary) hypertension Status: Chronic Plan: - Home meds continued - Monitor (3) Hypothyroidism ICD Codes: E03.9 - Hypothyroidism, unspecified Status: Chronic Plan: - Home meds continued (4) Anxiety ICD Codes: F41.9 - Anxiety Status: Chronic Plan: - Xanax Liseth Scott Mar 17, 2017 11:30
[2017-03-17] MEDS: RESP: ALBUTEROL 2.5 MG/3 ML NEB (PRN) NEB (20:09)
[2017-03-17] MEDS: predniSONE 10 MG TAB PO SCH (20:25)
[2017-03-17] MEDS: ATORVASTATIN 10 MG TAB PO SCH (20:25)
[2017-03-17] MEDS: SODIUM CHLORIDE 0.9% FLUSH 10 ML FLUSH IVF PRN (20:25)
[2017-03-17] MEDS: ALPRAZolam 0.5 MG TAB PO PRN (20:27)
[2017-03-17] MEDS: TEMAZEPAM 15 MG CAP PO PRN (22:40)
[2017-03-18] VITALS: BP 152/62; PULSE 107; RESP 20; TEMP 97.4; O2SAT 95
[2017-03-18 04:00] VITALS: BP 177/84; PULSE 121; RESP 20; TEMP 97.4; O2SAT 93
[2017-03-18] MEDS: HEPARIN SODIUM - SQ 10,000 UNITS/ML VIAL SQ SCH (05:43)
[2017-03-18] MEDS: RESP: ALBUTEROL 2.5 MG/3 ML NEB (PRN) NEB (06:04)
[2017-03-18 06:06] VITALS: O2SAT 95
[2017-03-18 08:00] VITALS: BP 140/65; PULSE 100; RESP 20; TEMP 97.6; O2SAT 95
[2017-03-18] MEDS ORDERED: PRED10 PO (08:06)
[2017-03-18] MEDS ORDERED: SYMB160A INH (08:06)
[2017-03-18] MEDS ORDERED: VENL75XR PO (08:06)
--- NOTE | 2017-03-18 08:07 | HHI.DCPOC ---
Discharge Care Plan Diagnosis: (1) COPD exacerbation Goals to Promote Your Health * To prevent worsening of your condition and complications * To maintain your health at the optimal level Directions to Meet Your Goals Take your medications as prescribed Follow your dietary instruction Follow activity as directed Keep your appointments as scheduled Take your immunizations and boosters as scheduled If your symptoms worsen call your PCP, if no PCP go to Urgent Care Center or Emergency Room Smoking is Dangerous to Your Health. Avoid second hand smoke Call the 24-hour hour crisis hotline for domestic abuse at José Manuel Ellis MD Mar 18, 2017 08:07
[2017-03-18] MEDS: ASPIRIN 81 MG CHEW TAB CHEW SCH (08:10)
[2017-03-18] MEDS: predniSONE 10 MG TAB PO SCH (08:10)
[2017-03-18] MEDS: guaiFENesin E.R. 600 MG TAB PO SCH (08:10)
[2017-03-18] MEDS: FAMOTIDINE 20 MG TAB PO SCH (08:10)
--- NOTE | 2017-03-18 08:10 | HHI.DS ---
Discharge Summary Admission Date Mar 13, 2017 at 15:04 Discharge Date: Mar 18, 2017 Admitting Diagnosis COPD exacerbation (1) COPD exacerbation Diagnosis: Principal ICD Codes: J44.1 - Chronic obstructive pulmonary disease with (acute) exacerbation Status: Chronic (2) Hypertension ICD Codes: I10 - Essential (primary) hypertension Status: Chronic (3) Hypothyroidism Diagnosis: Secondary ICD Codes: E03.9 - Hypothyroidism, unspecified Status: Chronic (4) Anxiety Diagnosis: Secondary ICD Codes: F41.9 - Anxiety Status: Chronic Brief History Mrs. Newberry is a pleasant 66 y/o female with COPD chronically on 1.5L of supplemental O2, HTN, hyperlipidemia and depression/anxiety who presented to the ED on 03/13 for evaluation of shortness of breath. Patient reports that for the past week or so she has been having worsening shortness of breath. She follows with Dr. Longoria as an outpt and was seen in his office last week. She was having issues with increased SOB at that time and her Symbicort was stopped and she was started on Stiolto Respimat nebulized medication but this did not help. She was also give Levaquin 500mg po daily which she completed a about a week long regimen. She has been taking Albuterol nebs Q4-5 hours and Ventolin PRN. Today her SOB became more severe and she had some chest tightness. She states it feels like her COPD exacerbation that she has had in the past. She denies any fevers chills or sweats. Pt has had some sinus congestion and some chest pressure which per patient is her usual with COPD exacerbation. In the Ed she was given a dose of Solu-Medrol 125mg once and was given Duoneb treatments x 6. Pt was ambulated in the ED on supplemental O2 but she had tachypnea and her O2 sats dropped into the low 90's. Pt is being admitted for continued treatment of her COPD exacerbation. CBC/BMP: 03/16/17 1654 03/16/17 1654 Significant Findings Laboratory Tests Test 03/16/17 01:20 03/16/17 16:54 White Blood Count 27.3 TH/MM3 (4.0-11.0) Neutrophils % (Manual) 93 % (16-70) Lymphocytes % 3 % (9-44) Neutrophils # (Manual) 25.9 TH/MM3 (1.8-7.7) Myelocytes 1 % (0-0) Random Glucose 330 MG/DL (74-106) Estimat Glomerular Filtration Rate 72 ML/MIN (>89) Hospital Course (1) COPD exacerbation - Pt is a 66 y/o female with COPD on chronic supplemental O2 @ 1-1.5L, HTH, and Hypothyroidism. - Pt presented to the ED with increased SOB felt to likely be secondary to COPD exacerbation. - Pt was given Solu-Medrol 125mg x one dose in the ED and Duonebs x 6 - Pt reportedly has an allergy to Ipratropium - Mucomyst was added on 03/15 but she felt that this made her SOB worse and she had an episode of severe SOB and hypoxia and was transferred to ICU on 03/15. - The Mucomyst was stopped - Pt stabilized in the ICU and was transferred out on 03/16. - Pulmonary following. - Change Solu-Medrol to Prednisone 30mg BID - Cont. Albuterol Nebs Q4H - Cont. Symbicort BID - Cont. Mucinex PO - Increase her Venlafaxine to 150mg po daily - Supplemental O2, titrated down to 2L which is her baseline - on day of d/c pt eager for d/c. Seen together with Dr Longoria...d/c and close f/ u this week. prednisone taper. Pt Condition on Discharge: Stable Discharge Disposition: Discharge Home Discharge Instructions DIET: Follow Instructions for: As Tolerated, No Restrictions Activities you can perform: Regular-No Restrictions Follow up Referrals: Pulmonology - 1 Week with Swati Longoria MD New Medications: Budesonide-Formoterol Inh (Symbicort Inh) 160-4.5 Mcg/Act Aero 2 PUFF INH Q12HR for copd, #1 INHALER 3 Refills Prednisone (Prednisone) 10 Mg Tab 10 MG PO DIRECTED for copd for 11 Days, TAB 0 Refills 30mg po bid x 2 days,20mg po bid x 3 days, 10mg po bid x 3 days,10mg po daily x 3 days Venlafaxine ER 24 HR (Effexor XR 24 HR) 75 Mg Cap 150 MG PO DAILY for Anxiety, #60 CAP 3 Refills Continued Medications: Albuterol 18 GM Inh (Ventolin Hfa 18 GM Inh) 90 Mcg/Act Aer 2 PUFF INH Q4H PRN for SHORTNESS OF BREATH, #1 INHALER 0 Refills Albuterol Neb (Albuterol Neb) 2.5 Mg/0.5 Ml Neb 2.5 MG NEB Q4HR NEB PRN for WHEEZING, #1 BOX 2 Refills Albuterol Sulfate Inhalation Solution is concentrated & must be diluted. Read complete instructions before using. Aspirin (Aspirin) 81 Mg Chew 81 MG CHEW DAILY, TAB 0 Refills Atorvastatin (Atorvastatin) 10 Mg Tab 10 MG PO HS for Cholesterol Management, #90 TAB 1 Refill Cholecalciferol (D-2000 Maximum Strength) 2,000 Unit Tab 2000 UNITS PO DAILY for Nutritional Supplement, #30 TAB 0 Refills Diltiazem ER 24 HR (Diltiazem ER 24 HR) 240 Mg Ad 240 MG PO DAILY, #90 TAB 1 Refill Levothyroxine (Levothyroxine) 25 Mcg Tab 25 MCG PO DAILY for Thyroid, #90 TAB 1 Refill Discontinued Medications: Budesonide-Formoterol Inh (Symbicort Inh) 80-4.5 Mcg/Act Aero 2 PUFF INH Q12HR for Asthma Management, #1 INHALER 6 Refills Levofloxacin (Levaquin) 500 Mg Tablet 500 MG PO DAILY for Infection, TAB 0 Refills Venlafaxine ER 24 HR (Venlafaxine ER 24 HR) 75 Mg Cap 75 MG PO DAILY, #90 CAP 1 Refill José Manuel Ellis MD Mar 18, 2017 08:10
[2017-03-18] MEDS: LEVOTHYROXINE SODIUM 25 MCG TAB PO SCH (08:11)
[2017-03-18] MEDS: DILTIAZEM-CD 240 MG CAP ER PO SCH (08:11)
[2017-03-18] MEDS: BUDESONIDE-FORMOTEROL 80/4.5 MCG INHALER INH SCH (08:12)
[2017-03-18] MEDS: MUPIROCIN 2% OINT 1 APPLIC/GM SYR EACH NARE SCH (08:12)
[2017-03-18] MEDS ORDERED: LACTULOSE SYRUP 20 GM/30 ML CUP PO PRN (08:15)
--- NOTE | 2017-03-18 08:47 | HHI.PR ---
Subjective Remarks ALERT LESS SOB WANTS TO GO HOME Objective Vital Signs Date Time Temp Pulse Resp B/P (MAP) Pulse Ox O2 Delivery O2 Flow Rate FiO2 03/18/17 06:06 95 Nasal Cannula 3.00 03/18/17 04:00 97.4 121 20 177/84 (115) 93 03/18/17 00:00 97.4 107 20 152/62 (92) 95 03/17/17 20:13 98 Nasal Cannula 3.00 03/17/17 20:00 Nasal Cannula 2.00 03/17/17 20:00 97.5 110 22 168/74 (105) 93 03/17/17 16:00 97.8 116 20 171/67 (101) 92 03/17/17 12:00 97.8 115 20 139/65 (89) 93 I/O 03/17/17 03/17/17 03/17/17 03/18/17 03/18/17 03/18/17 07:00 15:00 23:00 07:00 15:00 23:00 Intake Total 240 ml 760 ml 560 ml Output Total 800 ml Balance 240 ml -40 ml 560 ml Intake Oral 240 ml 760 ml 560 ml Output Urine Total 800 ml # Voids 3 3 # Bowel Movements 0 1 0 Result Diagram: 03/16/17165303/16/17 165 Swati Longoria MD Mar 18, 2017 08:47
--- NOTE | 2017-03-18 08:48 | HHI.PR ---
Subjective Remarks ALERT LESS SOB WANTS TO GO HOME Objective Vital Signs Date Time Temp Pulse Resp B/P (MAP) Pulse Ox O2 Delivery O2 Flow Rate FiO2 03/18/17 06:06 95 Nasal Cannula 3.00 03/18/17 04:00 97.4 121 20 177/84 (115) 93 03/18/17 00:00 97.4 107 20 152/62 (92) 95 03/17/17 20:13 98 Nasal Cannula 3.00 03/17/17 20:00 Nasal Cannula 2.00 03/17/17 20:00 97.5 110 22 168/74 (105) 93 03/17/17 16:00 97.8 116 20 171/67 (101) 92 03/17/17 12:00 97.8 115 20 139/65 (89) 93 I/O 03/17/17 03/17/17 03/17/17 03/18/17 03/18/17 03/18/17 07:00 15:00 23:00 07:00 15:00 23:00 Intake Total 240 ml 760 ml 560 ml Output Total 800 ml Balance 240 ml -40 ml 560 ml Intake Oral 240 ml 760 ml 560 ml Output Urine Total 800 ml # Voids 3 3 # Bowel Movements 0 1 0 Result Diagram: 03/16/17165303/16/171653 Objective Remarks GENERAL: SKIN: Warm and dry. HEAD: Atraumatic. Normocephalic. EYES: Pupils equal and round. No scleral icterus. No injection or drainage. ENT: No nasal bleeding or discharge. Mucous membranes pink and moist. NECK: Trachea midline. No JVD. CARDIOVASCULAR: Regular rate and rhythm. RESPIRATORY: No accessory muscle use. Clear to auscultation. Breath sounds equal bilaterally. GASTROINTESTINAL: Abdomen soft, non-tender, nondistended. Hepatic and splenic margins not palpable. MUSCULOSKELETAL: Extremities without clubbing, cyanosis, or edema. No obvious deformities. NEUROLOGICAL: Awake and alert. No obvious cranial nerve deficits. Motor grossly within normal limits. Five out of 5 muscle strength in the arms and legs. Normal speech. PSYCHIATRIC: Appropriate mood and affect; insight and judgment normal. Assessment and Plan Assessment and Plan COPD EXACERBATION IMPROVED PLAN OK FOR D/C ON PO MEDS OFFICE I WEEK Swati Longoria MD Mar 18, 2017 08:48
[2017-03-18] MEDS ORDERED: VENLAFAXINE HCL XR 75 MG CAP PO SCH (09:00)
[2017-03-18] MEDS ORDERED: REST15CA PO (10:32)
[2017-03-18] MEDS ORDERED: ALPR.5 PO (10:32)
[2017-03-18] MEDS: ALPRAZolam 0.5 MG TAB PO PRN (11:12)
[2017-03-19] MEDS ORDERED: VENL75XR PO (09:38)
== END 2017-03-18 12:00 | disposition home or self-care (01) | DRG 190 ==
LOC: NEPE 12:31 → NEDA 14:52 → OBSVTOIN 15:04 → N07B 15:51 → N03A 03-15 20:45 → N04B 03-16 18:53
PROVIDERS: ADMIT Hospitalist; ATTEND Hospitalist
DX: J44.1 Chronic obstructive pulmonary disease with (acute) exacerbation (principal); J96.21 Acute and chronic respiratory failure with hypoxia; Z99.81 Dependence on supplemental oxygen; I10 Essential (primary) hypertension; F32.9 Major depressive disorder, single episode, unspecified; F41.9 Anxiety disorder, unspecified; E78.5 Hyperlipidemia, unspecified; Z85.828 Personal history of other malignant neoplasm of skin; Z87.891 Personal history of nicotine dependence; E03.9 Hypothyroidism, unspecified; Z79.82 Long term (current) use of aspirin
CPT/HCPCS: 71010; 80048; 80053; 83735; 84100; 85007; 85025; 85027; 87641; 93005; 94640; 94664; J1644; J2930; J7512; J7613